=== PATIENT | male | born 1940 | race Caucasian/White ===

== ENCOUNTER 2019-08-28 13:10 | Inpatient (IN) | payer MEDICARE, MEDICAID ==
[~2019-08-28] VITALS: Ht 172.7 cm; Wt 85.3 kg
[2019-08-28 13:20] VITALS: BP 114/77
[2019-08-28] MEDS ORDERED: GABAPENTIN100 MG ORAL (13:25)
[2019-08-28] MEDS ORDERED: COLACE100 MG ORAL (13:25)
[2019-08-28] MEDS ORDERED: NOVOLIN R100 UNIT/1 SUBQ (13:25)
[2019-08-28] MEDS ORDERED: OMEPRAZOLE20 M2 ORAL (13:25)
[2019-08-28] MEDS ORDERED: FLOMAX0.4 MG ORAL (13:25)
[2019-08-28 14:32] LABS: HEMOGLOBIN 14.4 G/DL (14.2-18.0); MEAN CORPUSCULAR VOLUME 87 FL (80-99); PLATELET COUNT 236 K/UL (150-450); RED BLOOD COUNT 4.74 M/UL (4.70-6.10); RED CELL DISTRIBUTION WIDTH 11.4 % (11.6-14.8); WHITE BLOOD COUNT 6.8 K/UL (4.8-10.8)
[2019-08-28 14:44] LABS: ANION GAP 6 mmol/L (5-15); BLOOD UREA NITROGEN 10 mg/dL (7-18); CALCIUM 8.7 MG/DL (8.5-10.1); CARBON DIOXIDE 30 MMOL/L (21-32); CHLORIDE 106 MMOL/L (98-107); CREATININE 0.8 MG/DL (0.55-1.30); SODIUM 142 MMOL/L (136-145)
--- NOTE | 2019-08-28 14:45 | Emergency Room Report ---
History of Present Illness General Chief Complaint: General Complaint Source: EMS, PMD Present Illness HPI Patient presents with reports of continued deterioration in health Lack of oral intake continued confusion and discomfort Patient himself has significant dementia and history is incomplete from the patient however the patient's primary physician did contact us and provided significant input There was no reports of diarrhea or vomiting No reports of any fevers or focal weakness Allergies: Coded Allergies: No Known Allergies (Unverified , 08/28/19) COVID-19 Screening Contact w/high risk pt: No Recent Travel to affected area: No Experienced COVID-19 symptoms?: No COVID-19 Testing performed ASSISTANT TO THE DEAN: No Patient History Limited by: medical condition Past Medical History: see triage record Reviewed Nursing Documentation: PMH: Agreed; PSxH: Agreed Nursing Documentation-PMH Past Medical History: No History, Except For Hx Diabetes: Yes History Of Psychiatric Problem: Yes Review of Systems All Other Systems: limited - Other than the ones mentioned in the history of present illness all others are reviewed however they do stay limited due to the patient's mental status Physical Exam Vital Signs Date Time Temp Pulse Resp B/P (MAP) Pulse Ox O2 Delivery O2 Flow Rate FiO2 08/28/19 13:12 97.3 85 18 114/77 (89) 96 Room Air Sp02 EP Interpretation: reviewed, normal General Appearance: other - Chronically debilitated Head: normocephalic, atraumatic Eyes: bilateral eye PERRL ENT: dry mucus membranes Neck: full range of motion, no meningismus Respiratory: no retraction, no accessory muscle use, crackles - Both lower lobes Cardiovascular #1: regular rate, rhythm Gastrointestinal: non tender, soft Musculoskeletal: other - Patient does not follow commands appears chronically debilitated Neurologic: responsive - To physical and verbal stimuli Skin: no rash Lymphatic: no adenopathy Medical Decision Making Diagnostic Impression: Primary Impression: Dehydration Additional Impression: Weakness ER Course Given the patient's history and presentation multiple differentials and consideration Including but not limited to sepsis dehydration,, neurological/neurosurgical process Patient had extensive work-up including CT imaging CT head does not show any acute process Blood work is at baseline levels urine sample shows questionable infection however small leukocytes this will be deferred to inpatient care Patient further hydrated admitted for further inpatient evaluation Labs Test 08/28/19 14:00 08/28/19 14:40 08/29/19 05:50 08/30/19 06:40 White Blood Count 6.8 K/UL (4.8-10.8) 5.1 K/UL (4.8-10.8) 5.6 K/UL (4.8-10.8) Red Blood Count 4.74 M/UL (4.70-6.10) 4.62 M/UL (4.70-6.10) 4.23 M/UL (4.70-6.10) Hemoglobin 14.4 G/DL (14.2-18.0) 13.9 G/DL (14.2-18.0) 12.9 G/DL (14.2-18.0) Hematocrit 41.0 % (42.0-52.0) 40.0 % (42.0-52.0) 36.9 % (42.0-52.0) Mean Corpuscular Volume 87 FL (80-99) 87 FL (80-99) 87 FL (80-99) Mean Corpuscular Hemoglobin 30.5 PG (27.0-31.0) 30.0 PG (27.0-31.0) 30.4 PG (27.0-31.0) Mean Corpuscular Hemoglobin Concent 35.2 G/DL (32.0-36.0) 34.6 G/DL (32.0-36.0) 34.8 G/DL (32.0-36.0) Red Cell Distribution Width 11.4 % (11.6-14.8) 11.4 % (11.6-14.8) 12.1 % (11.6-14.8) Platelet Count 236 K/UL (150-450) 216 K/UL (150-450) 214 K/UL (150-450) Mean Platelet Volume 7.3 FL (6.5-10.1) 6.3 FL (6.5-10.1) 6.7 FL (6.5-10.1) Neutrophils (%) (Auto) % (45.0-75.0) 75.6 % (45.0-75.0) 72.3 % (45.0-75.0) Lymphocytes (%) (Auto) % (20.0-45.0) 14.9 % (20.0-45.0) 15.7 % (20.0-45.0) Monocytes (%) (Auto) % (1.0-10.0) 5.7 % (1.0-10.0) 7.2 % (1.0-10.0) Eosinophils (%) (Auto) % (0.0-3.0) 3.1 % (0.0-3.0) 4.2 % (0.0-3.0) Basophils (%) (Auto) % (0.0-2.0) 0.6 % (0.0-2.0) 0.5 % (0.0-2.0) Differential Total Cells Counted 100 Neutrophils % (Manual) 78 % (45-75) Lymphocytes % (Manual) 18 % (20-45) Monocytes % (Manual) 4 % (1-10) Eosinophils % (Manual) 0 % (0-3) Basophils % (Manual) 0 % (0-2) Band Neutrophils 0 % (0-8) Platelet Estimate Adequate Platelet Morphology Normal Red Blood Cell Morphology Normal Sodium Level 142 MMOL/L (136-145) 140 MMOL/L (136-145) 146 MMOL/L (136-145) Potassium Level 4.0 MMOL/L (3.5-5.1) 3.8 MMOL/L (3.5-5.1) 4.5 MMOL/L (3.5-5.1) Chloride Level 106 MMOL/L (98-107) 106 MMOL/L (98-107) 110 MMOL/L (98-107) Carbon Dioxide Level 30 MMOL/L (21-32) 28 MMOL/L (21-32) 29 MMOL/L (21-32) Anion Gap 6 mmol/L (5-15) 6 mmol/L (5-15) 7 mmol/L (5-15) Blood Urea Nitrogen 10 mg/dL (7-18) 9 mg/dL (7-18) 6 mg/dL (7-18) Creatinine 0.8 MG/DL (0.55-1.30) 0.8 MG/DL (0.55-1.30) 0.8 MG/DL (0.55-1.30) Estimat Glomerular Filtration Rate > 60 mL/min (>60) > 60 mL/min (>60) > 60 mL/min (>60) Glucose Level 127 MG/DL (74-106) 148 MG/DL (74-106) 142 MG/DL (74-106) Lactic Acid Level 1.10 mmol/L (0.4-2.0) Calcium Level 8.7 MG/DL (8.5-10.1) 8.5 MG/DL (8.5-10.1) 8.5 MG/DL (8.5-10.1) Total Bilirubin 0.7 MG/DL (0.2-1.0) 0.6 MG/DL (0.2-1.0) 0.4 MG/DL (0.2-1.0) Aspartate Amino Transf (AST/SGOT) 14 U/L (15-37) 14 U/L (15-37) 15 U/L (15-37) Alanine Aminotransferase (ALT/SGPT) 16 U/L (12-78) 12 U/L (12-78) 10 U/L (12-78) Alkaline Phosphatase 112 U/L (46-116) 105 U/L (46-116) 94 U/L (46-116) Total Creatine Kinase 87 U/L (26-308) Creatine Kinase MB 1.7 NG/ML (0.0-3.6) Creatine Kinase MB Relative Index 1.9 Troponin I 0.000 ng/mL (0.000-0.056) Pro-B-Type Natriuretic Peptide 321 pg/mL (0-125) Total Protein 6.8 G/DL (6.4-8.2) 6.2 G/DL (6.4-8.2) 5.8 G/DL (6.4-8.2) Albumin 2.6 G/DL (3.4-5.0) 2.4 G/DL (3.4-5.0) 2.1 G/DL (3.4-5.0) Globulin 4.2 g/dL 3.8 g/dL 3.7 g/dL Albumin/Globulin Ratio 0.6 (1.0-2.7) 0.6 (1.0-2.7) 0.6 (1.0-2.7) Lipase 101 U/L (73-393) Urine Color Yellow Urine Appearance Clear Urine pH 6 (4.5-8.0) Urine Specific [place] 1.015 (1.005-1.035) Urine Protein 1+ (NEGATIVE) Urine Glucose (UA) Negative (NEGATIVE) Urine Ketones Negative (NEGATIVE) Urine Blood 2+ (NEGATIVE) Urine Nitrite Negative (NEGATIVE) Urine Bilirubin Negative (NEGATIVE) Urine Urobilinogen 4 MG/DL (0.0-1.0) Urine Leukocyte Esterase 1+ (NEGATIVE) Urine RBC 15-20 /HPF (0 - 0) Urine WBC 10-15 /HPF (0 - 0) Urine Squamous Epithelial Cells None /LPF (NONE/OCC) Urine Bacteria Moderate /HPF (NONE) Erythrocyte Sedimentation Rate 33 MM/HR (0-20) Prothrombin Time 12.0 SEC (9.30-11.50) Prothromb Time International Ratio 1.1 (0.9-1.1) Activated Partial Thromboplast Time 33 SEC (23-33) C-Reactive Protein, Quantitative 4.3 mg/dL (0.00-0.90) Thyroid Stimulating Hormone (TSH) 0.991 uiU/mL (0.358-3.740) Labs Test 08/28/19 14:00 White Blood Count 6.8 K/UL (4.8-10.8) Red Blood Count 4.74 M/UL (4.70-6.10) Hemoglobin 14.4 G/DL (14.2-18.0) Hematocrit 41.0 % (42.0-52.0) Mean Corpuscular Volume 87 FL (80-99) Mean Corpuscular Hemoglobin 30.5 PG (27.0-31.0) Mean Corpuscular Hemoglobin Concent 35.2 G/DL (32.0-36.0) Red Cell Distribution Width 11.4 % (11.6-14.8) Platelet Count 236 K/UL (150-450) Mean Platelet Volume 7.3 FL (6.5-10.1) Neutrophils (%) (Auto) % (45.0-75.0) Lymphocytes (%) (Auto) % (20.0-45.0) Monocytes (%) (Auto) % (1.0-10.0) Eosinophils (%) (Auto) % (0.0-3.0) Basophils (%) (Auto) % (0.0-2.0) Rhythm Strip Diag. Results EP Interpretation: yes Rate: 77 Rhythm: NSR, no PVC's, no ectopy Chest X-Ray Diagnostic Results Chest X-Ray Diagnostic Results : Chest X-Ray Ordered: Yes # of Views/Limited/Complete: 1 View Indication: Chest Pain EP Interpretation: Yes Interpretation: no effusion, no pneumothorax, other - Bilateral atelectasis Impression: Other - Bilateral atelectasis Electronically Signed by: Franchesca Medellin DO CT/MRI/US Diagnostic Results CT/MRI/US Diagnostic Results : Impression ct head no acute disease Last Vital Signs Date Time Temp Pulse Resp B/P (MAP) Pulse Ox O2 Delivery O2 Flow Rate FiO2 08/28/19 13:12 97.3 85 18 114/77 (89) 96 Room Air Status: improved Disposition: ADMITTED INPATIENT Condition: Serious Franchesca Medellin DO Aug 28, 2019 14:45
[2019-08-28 14:58] LABS: ALANINE AMINOTRANSFERASE 16 U/L (12-78); ALBUMIN 2.6 G/DL (3.4-5.0); ALBUMIN/GLOBULIN RATIO 0.6 (1.0-2.7); ALKALINE PHOSPHATASE 112 U/L (46-116); ASPARTATE AMINO TRANSFERASE 14 U/L (15-37); BILIRUBIN,TOTAL 0.7 MG/DL (0.2-1.0); CKMB 1.7 NG/ML (0.0-3.6); CREATINE KINASE 87 U/L (26-308)
--- NOTE | 2019-08-28 15:06 | Diagnostic Imaging Report ---
Indications: Altered mental status Technique: Spiral acquisitions obtained through the brain. Angled axial and coronal 5 x 5 mm slices were reconstructed. Total dose length product 1179 mGycm. CTDI vol(s) 53 mGy. Dose reduction achieved using automated exposure control Comparison: None. Findings: There is age-related enlargement of the ventricles and extra-axial CSF spaces. There is periventricular deep white matter low-attenuation, consistent with chronic microvascular ischemic change. No acute intracranial hemorrhage or edema. No mass effect nor midline shift. Visualized orbits and sinuses are unremarkable. The mastoids are clear. The calvarium is intact Impression: Chronic and age-related changes. Negative for acute intracranial bleed or mass effect. The CT scanner at [facility] is accredited by the [employer] and the scans are performed using protocols designed to limit radiation exposure to as low as reasonably achievable to attain images of sufficient resolution adequate for diagnostic evaluation.
[2019-08-28 16:28] LABS: APPEARANCE,URINE CLEAR; BILIRUBIN, URINE NEGATIVE (NEGATIVE); GLUCOSE, URINE (UA) NEGATIVE (NEGATIVE); KETONES,URINE NEGATIVE (NEGATIVE); LEUKOCYTE ESTERASE ,URINE 1+ (NEGATIVE); NITRITE,URINE NEGATIVE (NEGATIVE); PH,URINE 6 (4.5-8.0); PROTEIN,URINE 1+ (NEGATIVE); UROBILINOGEN,URINE 4 MG/DL (0.0-1.0)
--- NOTE | 2019-08-28 16:28 | Diagnostic Imaging Report ---
Indication: Chest pain Technique: One view of the chest Comparison: none Findings: Patient's chin obscures the right lung apex. There is some atelectasis at both lung bases. The heart size is normal. The aorta is tortuous ectatic and calcified. Mild interstitial prominence may be on the basis of senescent changes. No definite infiltrates. Impression: Basilar atelectasis bilaterally Mild interstitial prominence, suspect on the basis of senescent changes. No definite infiltrates
[2019-08-28 16:43] LABS: COLOR,URINE YELLOW
[2019-08-28 17:21] VITALS: BP 120/76
[2019-08-28 19:15] VITALS: BP 128/80
[2019-08-28] MEDS: cefTRIAXone 1 GM in D5W 55 ML IVPB SCH (21:35)
[2019-08-28] MEDS: D5 1/2NS w/KCL 10meq 1,000 ML IV SCH (21:35)
[2019-08-28] MEDS: Heparin 5000 units/ml inj SUBQ SCH (21:36)
[2019-08-29] VITALS: BP 109/62
[2019-08-29 04:00] VITALS: BP 109/52
--- NOTE | 2019-08-29 06:30 | Consultation ---
DATE OF CONSULTATION: 08/28/2019 CARDIOLOGY CONSULTATION CONSULTING PHYSICIAN: Mahamed Feng MD. REQUESTING PHYSICIAN: Wadlo Dinh MD. REASON FOR CONSULTATION: Cardiovascular clearance for G-tube in the setting of elevated natriuretic peptide assay. HISTORY OF PRESENT ILLNESS: This is an 79-year-old male, residing at a skilled facility with dementia. He is being admitted due to failure, indeed for G-tube placement. He has had failure to thrive and had dysphagia. PAST MEDICAL HISTORY: Type 2 diabetes mellitus, diabetic neuropathy, hypertension, hypertensive heart disease, cerebrovascular disease with dementia. ALLERGIES: None. FAMILY HISTORY: Noncontributory. SOCIAL HISTORY: No record of smoking, alcohol, or substance abuse. MEDICATIONS: Reviewed and reconciled. REVIEW OF SYSTEMS: A 10-point review of systems cannot be reliably obtained. PHYSICAL EXAMINATION: VITAL SIGNS: Blood pressure 114/77, heart rate 85, respiratory rate 18, oxygen saturation room air 97%. HEENT: Conjunctivae pink. Oropharynx clear. NECK: Jugular venous pressure normal. LUNGS: Clear. CARDIAC: Regular. Normal S1, S2 with a fourth heart sound. ABDOMEN: Soft. EXTREMITIES: No edema. NEUROLOGIC: Reveals moderate cognitive impairment. No focal deficits. LABORATORY AND DIAGNOSTIC DATA: Sodium 142, potassium 4, bicarb 30, BUN 10, creatinine 0.8. Lactic acid 1.1. Glucose 127. Liver function normal. Natriuretic peptide 321. Troponin 0. Albumin 2.6. White count 6.8, hemoglobin 14. Urinalysis, 10 to 15 white cells, moderate bacteria. Chest x-ray with atelectasis, interstitial prominence. CT of the brain, diffuse white matter disease. EKG, sinus rhythm. Nonspecific ST changes. Minimal voltage for left ventricular hypertrophy. IMPRESSION: 1. Hypertensive heart disease with controlled blood pressure. 2. Elevated natriuretic peptide assay with no clinical signs of acute congestive heart failure. 3. Type 2 diabetes mellitus with controlled glucose. 4. Moderate protein-calorie malnutrition. 5. Prostatic hypertrophy. 6. Urinary tract infection. PLAN: Hydration by IV route. Empiric antimicrobials. Pending urine cultures. Titrate antihypertensive regimen. Insulin coverage by sliding scale. Normal risk for G-tube placement. No additional preoperative interventions required. Mahamed Feng M.D. DR: ERNESTO JOB#: [id number] CC:
[2019-08-29 07:13] LABS: BASOPHILS % (AUTO) 0.6 % (0.0-2.0); EOSINOPHILS % (AUTO) 3.1 % (0.0-3.0); HEMOGLOBIN 13.9 G/DL (14.2-18.0); LYMPHOCYTES % (AUTO) 14.9 % (20.0-45.0); MEAN CORPUSCULAR VOLUME 87 FL (80-99); MONOCYTES % (AUTO) 5.7 % (1.0-10.0); NEUTROPHILS % (AUTO) 75.6 % (45.0-75.0); PLATELET COUNT 216 K/UL (150-450); RED BLOOD COUNT 4.62 M/UL (4.70-6.10); RED CELL DISTRIBUTION WIDTH 11.4 % (11.6-14.8); WHITE BLOOD COUNT 5.1 K/UL (4.8-10.8)
[2019-08-29 07:16] LABS: ANION GAP 6 mmol/L (5-15); BLOOD UREA NITROGEN 9 mg/dL (7-18); CARBON DIOXIDE 28 MMOL/L (21-32); CHLORIDE 106 MMOL/L (98-107); CREATININE 0.8 MG/DL (0.55-1.30); POTASSIUM 3.8 MMOL/L (3.5-5.1); SODIUM 140 MMOL/L (136-145)
[2019-08-29 07:17] LABS: ALANINE AMINOTRANSFERASE 12 U/L (12-78); ALBUMIN 2.4 G/DL (3.4-5.0); ALBUMIN/GLOBULIN RATIO 0.6 (1.0-2.7); ALKALINE PHOSPHATASE 105 U/L (46-116); ASPARTATE AMINO TRANSFERASE 14 U/L (15-37); BILIRUBIN,TOTAL 0.6 MG/DL (0.2-1.0); CALCIUM 8.5 MG/DL (8.5-10.1)
[2019-08-29 08:00] VITALS: BP 124/62
[2019-08-29] MEDS: Heparin 5000 units/ml inj SUBQ SCH ×2 (09:47→20:33)
[2019-08-29] MEDS: Tamsulosin 0.4mg cap ORAL SCH (09:50)
[2019-08-29] MEDS: Pantoprazole Inj IVP SCH (09:50)
[2019-08-29] MEDS: Docusate 100mg cap ORAL SCH (09:50)
[2019-08-29 12:00] VITALS: BP 128/64
--- NOTE | 2019-08-29 14:07 | Consultation ---
History of Present Illness General Date patient seen: Aug 29, 2019 Chief Complaint: General Complaint Present Illness HPI 79M group home patient g tube dependant with g tube complication. admitted for care. FTT. malnutrition, decubitus, labs abnormal. surgery called to evaluate Allergies: Coded Allergies: No Known Allergies (Unverified , 08/28/19) Medication History Scheduled Docusate Sodium* (Colace*), 100 MG ORAL DAILY, (Reported) Gabapentin* (Gabapentin*), 100 MG ORAL THREE TIMES A DAY, (Reported) Insulin Regular, Human* (Novolin R*), 0 SUBQ .SLIDING SCALE, (Reported) Omeprazole (Omeprazole), 20 MG ORAL DAILY, (Reported) Tamsulosin HCl (Flomax), 0.4 MG ORAL DAILY, (Reported) Patient History Limited by: medical condition History Provided By: Medical Record, PMD Healthcare decision maker N Resuscitation status Advanced Directive on File Past Medical/Surgical History Past Medical/Surgical History: (1) Failure to thrive in adult (2) Malnutrition (3) Decubitus skin ulcer (4) Encounter for gastrojejunal tube placement Review of Systems All Other Systems: negative except mentioned in HPI ROS Narrative unalbe to obtain from patient Physical Exam General Appearance: no apparent distress Lines, tubes and drains: peripheral HEENT: mucous membranes moist Neck: normal inspection Respiratory/Chest: no respiratory distress, no accessory muscle use, decreased breath sounds Cardiovascular/Chest: regular rhythm Abdomen: soft, no organomegaly, feeding tube, other Genitourinary/Rectal: normal rectal exam Extremities: normal inspection Skin Exam: warm/dry Neurologic: alert Last 24 Hour Vital Signs Date Time Temp Pulse Resp B/P (MAP) Pulse Ox O2 Delivery O2 Flow Rate FiO2 08/29/19 12:00 98.0 54 18 128/64 (85) 97 08/29/19 09:00 Room Air 08/29/19 08:00 98.0 50 17 124/62 (82) 96 08/29/19 04:00 97.9 50 18 109/52 (71) 94 08/29/19 00:00 98.1 66 20 109/62 (78) 93 08/28/19 21:30 Room Air 08/28/19 20:21 98.0 79 18 130/73 97 Room Air 08/28/19 19:15 98.0 82 16 128/80 97 Room Air 08/28/19 17:21 98.1 89 18 120/76 96 Room Air Intake and Output 08/28/19 08/29/19 19:00 07:00 Intake Total 1000 ml Output Total 50 ml Balance 1000 ml -50 ml Intake IV Total 1000 ml Output Urine Total 50 ml # Voids 2 1 # Bowel Movements 1 Laboratory Tests Test 08/28/19 14:40 08/29/19 05:50 Urine Color Yellow Urine Appearance Clear Urine pH 6 (4.5-8.0) Urine Specific [place] 1.015 (1.005-1.035) Urine Protein 1+ (NEGATIVE) H Urine Glucose (UA) Negative (NEGATIVE) Urine Ketones Negative (NEGATIVE) Urine Blood 2+ (NEGATIVE) H Urine Nitrite Negative (NEGATIVE) Urine Bilirubin Negative (NEGATIVE) Urine Urobilinogen 4 MG/DL (0.0-1.0) H Urine Leukocyte Esterase 1+ (NEGATIVE) H Urine RBC 15-20 /HPF (0 - 0) H Urine WBC 10-15 /HPF (0 - 0) H Urine Squamous Epithelial Cells None /LPF (NONE/OCC) Urine Bacteria Moderate /HPF (NONE) H White Blood Count 5.1 K/UL (4.8-10.8) Red Blood Count 4.62 M/UL (4.70-6.10) L Hemoglobin 13.9 G/DL (14.2-18.0) L Hematocrit 40.0 % (42.0-52.0) L Mean Corpuscular Volume 87 FL (80-99) Mean Corpuscular Hemoglobin 30.0 PG (27.0-31.0) Mean Corpuscular Hemoglobin Concent 34.6 G/DL (32.0-36.0) Red Cell Distribution Width 11.4 % (11.6-14.8) L Platelet Count 216 K/UL (150-450) Mean Platelet Volume 6.3 FL (6.5-10.1) L Neutrophils (%) (Auto) 75.6 % (45.0-75.0) H Lymphocytes (%) (Auto) 14.9 % (20.0-45.0) L Monocytes (%) (Auto) 5.7 % (1.0-10.0) Eosinophils (%) (Auto) 3.1 % (0.0-3.0) H Basophils (%) (Auto) 0.6 % (0.0-2.0) Sodium Level 140 MMOL/L (136-145) Potassium Level 3.8 MMOL/L (3.5-5.1) Chloride Level 106 MMOL/L (98-107) Carbon Dioxide Level 28 MMOL/L (21-32) Anion Gap 6 mmol/L (5-15) Blood Urea Nitrogen 9 mg/dL (7-18) Creatinine 0.8 MG/DL (0.55-1.30) Estimat Glomerular Filtration Rate > 60 mL/min (>60) Glucose Level 148 MG/DL (74-106) H Calcium Level 8.5 MG/DL (8.5-10.1) Total Bilirubin 0.6 MG/DL (0.2-1.0) Aspartate Amino Transf (AST/SGOT) 14 U/L (15-37) L Alanine Aminotransferase (ALT/SGPT) 12 U/L (12-78) Alkaline Phosphatase 105 U/L (46-116) Total Protein 6.2 G/DL (6.4-8.2) L Albumin 2.4 G/DL (3.4-5.0) L Globulin 3.8 g/dL Albumin/Globulin Ratio 0.6 (1.0-2.7) L Microbiology Date/Time Source Procedure Growth Status 08/28/19 14:40 Urine,Clean Catch Urine Culture - Preliminary NO GROWTH Resulted 08/28/19 15:50 Rectum Received Height (Feet): 5 Height (Inches): 8.00 Weight (Pounds): 149 Medications Current Medications Medications (Trade) Dose Ordered Sig/Margarita Route PRN Reason Start Time Stop Time Status Last Admin Dose Admin Ceftriaxone Sodium 1 gm/ Dextrose 55 ml @ 110 mls/hr Q24H IVPB 08/28/19 22:00 09/04/19 21:59 08/28/19 21:35 Dextrose/ Electrolytes 1,000 ml @ 50 mls/hr Q20H IV 08/28/19 22:00 09/27/19 21:59 08/28/19 21:35 Docusate Sodium (Colace) 100 mg DAILY ORAL 08/29/19 09:00 09/28/19 08:59 08/29/19 09:50 Gabapentin (Neurontin) 100 mg THREE TIMES A DAY ORAL 08/29/19 09:00 09/28/19 08:59 08/29/19 13:32 Heparin Sodium (Porcine) (Heparin 5000 units/ml) 5,000 units EVERY 12 HOURS SUBQ 08/28/19 21:00 10/12/19 20:59 08/29/19 09:47 Pantoprazole (Protonix) 40 mg DAILY IVP 08/29/19 09:00 09/28/19 08:59 08/29/19 09:50 Tamsulosin HCl (Flomax) 0.4 mg DAILY ORAL 08/29/19 09:00 09/28/19 08:59 08/29/19 09:50 Assessment/Plan Problem List: (1) Decubitus skin ulcer Assessment & Plan: Pt presented on admission with multiple Pressure injuries. DTPI Buttocks which encompasses Sacrum, R and L Buttocks with multiple Unstageable wounds within base of Pressure injury. Full thickness wound at sacrococcygeal area.Biofilm at base of wound. Bone is palpable. Inferior,but in close proximity to L buttocks is wound with 100% slough. At upper R sacral area is Unstageable Pressure injury with scattered slough and small necrotic area. Wound at lower R gluteus has 100% slough. Surrounding Base of wound is mixed areas of purple and maroon discoloration. Edges adherent to base of wound. Unstageable Pressure injury medial/lateral R foot. Dry eschar noted . Edges are adherent. No erythema or fluctuance periwound. Stable dry eschar noted to Distal /lateral R foot. No erythema noted periwound. Dark discoloration medial/lateral L foot. Tx.Plan:Cleanse wound Buttocks with Saline. Apply TheraHoney. Apply Moisture Barrier Paste periwound. Cover with Optifoam drsgs. Change Daily and prn. Apply Cavilon Skin Barrier to R and L trochanter. Cover each site with Optifoam drsg. Change every 7 days and prn. Apply Cavilon Skin Barrier to R and L Malleoli,lateral R and L foot, and both heels. Cover each site with Optifoam drsgs. Change every 7 days and prn. Reposition at least every 2hours or as tolerated. Off-load Heels with pillow. APM/ROSE MARY Mattress Overlay. ICD Codes: L89.90 - Pressure ulcer of unspecified site, unspecified stage SNOMED: 040558694 (2) Malnutrition Assessment & Plan: diet eval g tube per GI will follow with recs ICD Codes: E46 - Unspecified protein-calorie malnutrition SNOMED: 79126492 (3) Failure to thrive in adult ICD Codes: R62.7 - Adult failure to thrive SNOMED: 117642029 (4) Encounter for gastrojejunal tube placement ICD Codes: Z78.9 - Other specified health status SNOMED: 474254929 Gordo Villalta Aug 29, 2019 14:07
[2019-08-29 16:00] VITALS: BP 141/71
[2019-08-29] MEDS: D5 1/2NS w/KCL 10meq 1,000 ML IV SCH (17:39)
--- NOTE | 2019-08-29 18:30 | History and Physical Report ---
DATE OF ADMISSION: 08/28/2019 CHIEF COMPLAINT: Dysphagia and altered mental status. HISTORY OF PRESENT ILLNESS: The patient is an 79-year-old male. He has history of dementia, Parkinson disease, hypertension, diabetes. He was transferred from a alf facility with complaints of failure to thrive and worsening p.o. intake. The patient is DNR. Despite changes in his diet as well as appetite stimulants, his p.o. intake has been diminishing. He has been losing weight. The patient's initially believed that he did not want any type of enteral feeding or G-tubes, but after discussion with the patient's other family members, she has elected to proceed with possible G-tube if deemed necessary. The patient is a poor historian. He is unable to provide any history. PAST MEDICAL HISTORY: As above. PAST SURGICAL HISTORY: None. CURRENT MEDICATIONS: Reconciled and reviewed. ALLERGIES: None. FAMILY HISTORY: None. SOCIAL HISTORY: Negative for tobacco, ethanol, or drugs. REVIEW OF SYSTEMS: Unobtainable as the patient is nonverbal. PHYSICAL EXAMINATION: VITAL SIGNS: Temperature 98, pulse 50, respirations 18, and blood pressure 109/52. GENERAL: The patient is well developed, in no apparent distress. HEART: Regular rate and rhythm. LUNGS: Clear. ABDOMEN: Soft, nontender, nondistended. EXTREMITIES: No clubbing, cyanosis, or edema. NEUROLOGIC: The patient is stiff and poorly responsive. LABORATORY DATA: Sodium 142, potassium was 4, BUN of 10, creatinine was 0.8. White count 6, hemoglobin 14, hematocrit 41, platelet count of 236,000. ASSESSMENT: This is an elderly male with a history of dementia and Parkinson disease, admitted with complaints of failure to thrive. PLAN: Plan of care has been discussed with the patient's and she would like to proceed with G-tube placement. GI will be consulted. Cardiology clearance will also be obtained. We will monitor the patient's labs. He will be hydrated. Waldo Dinh M.D. DR: Rhianna JOB#: [id number] CC:
[2019-08-29 20:00] VITALS: BP 129/72
[2019-08-29] MEDS: cefTRIAXone 1 GM in D5W 55 ML IVPB SCH (21:43)
[2019-08-30] VITALS (7 sets, daily range): BP systolic 94–131; BP diastolic 49–80
--- NOTE | 2019-08-30 01:15 | Progress Note ---
DATE: 08/29/2019 CARDIOLOGY PROGRESS NOTE SUBJECTIVE: The patient's intake is poor. Skin breakdown is assessed by surgeon and notes reviewed. Plans for enteral nutrition noted. OBJECTIVE: VITAL SIGNS: Blood pressure 141/71, heart rate 59, respiratory rate 18. LUNGS: Clear. CARDIAC: Regular. Low S1, S2. ABDOMEN: Soft. EXTREMITIES: No edema. NEUROLOGICAL: Moderate cognitive impairment noted. IMPRESSION: 1. Failure to thrive. 2. Severe protein-calorie malnutrition. 3. Asymptomatic sinus bradycardia. 4. Parkinson's dementia. 5. Hypertensive heart disease. 6. Type 2 diabetes mellitus. 7. Chronic diastolic congestive heart failure. PLAN: 1. Hydration. 2. Check thyroid panel. 3. Review repeat electrocardiogram. 4. We will reassess endoscopic risk over the next 24 hours. Mahamed Feng M.D. DR: Serge JOB#: [id number] CC:
[2019-08-30 07:25] LABS: BASOPHILS % (AUTO) 0.5 % (0.0-2.0); EOSINOPHILS % (AUTO) 4.2 % (0.0-3.0); HEMATOCRIT 36.9 % (42.0-52.0); HEMOGLOBIN 12.9 G/DL (14.2-18.0); LYMPHOCYTES % (AUTO) 15.7 % (20.0-45.0); MEAN CORPUSCULAR VOLUME 87 FL (80-99); MONOCYTES % (AUTO) 7.2 % (1.0-10.0); NEUTROPHILS % (AUTO) 72.3 % (45.0-75.0); PLATELET COUNT 214 K/UL (150-450); RED BLOOD COUNT 4.23 M/UL (4.70-6.10); RED CELL DISTRIBUTION WIDTH 12.1 % (11.6-14.8); WHITE BLOOD COUNT 5.6 K/UL (4.8-10.8)
[2019-08-30 07:53] LABS: ALANINE AMINOTRANSFERASE 10 U/L (12-78); ALBUMIN 2.1 G/DL (3.4-5.0); ALBUMIN/GLOBULIN RATIO 0.6 (1.0-2.7); ALKALINE PHOSPHATASE 94 U/L (46-116); ANION GAP 7 mmol/L (5-15); ASPARTATE AMINO TRANSFERASE 15 U/L (15-37); BILIRUBIN,TOTAL 0.4 MG/DL (0.2-1.0); BLOOD UREA NITROGEN 6 mg/dL (7-18); CALCIUM 8.5 MG/DL (8.5-10.1); CARBON DIOXIDE 29 MMOL/L (21-32); CHLORIDE 110 MMOL/L (98-107); CREATININE 0.8 MG/DL (0.55-1.30); POTASSIUM 4.5 MMOL/L (3.5-5.1); SODIUM 146 MMOL/L (136-145)
[2019-08-30 08:00] LABS: INR 1.1 (0.9-1.1)
[2019-08-30] MEDS: Heparin 5000 units/ml inj SUBQ SCH ×2 (08:13→21:14)
[2019-08-30] MEDS: Docusate 100mg cap ORAL SCH (08:15)
[2019-08-30] MEDS: Pantoprazole Inj IVP SCH (08:15)
[2019-08-30] MEDS: Tamsulosin 0.4mg cap ORAL SCH (08:15)
--- NOTE | 2019-08-30 08:15 | General Progress Note ---
Assessment/Plan Problem List: (1) UTI (urinary tract infection) ICD Codes: N39.0 - Urinary tract infection, site not specified SNOMED: 89469141 (2) Toxic metabolic encephalopathy ICD Codes: G92 - Toxic encephalopathy SNOMED: 818054292 (3) Failure to thrive in adult ICD Codes: R62.7 - Adult failure to thrive SNOMED: 469990339 (4) Malnutrition ICD Codes: E46 - Unspecified protein-calorie malnutrition SNOMED: 09041258 (5) Decubitus skin ulcer ICD Codes: L89.90 - Pressure ulcer of unspecified site, unspecified stage SNOMED: 788580094 Status: stable, progressing Assessment/Plan: cont current rx iv abx follow up cultures ivf. monitor Na level swallow eval pending likely will need GT d/w who agrees if needed Subjective ROS Limited/Unobtainable: Yes Constitutional: Reports: malaise, weakness HEENT: Reports: no symptoms Cardiovascular: Reports: no symptoms Respiratory: Reports: no symptoms Gastrointestinal/Abdominal: Reports: difficulty swallowing Genitourinary: Reports: no symptoms Neurologic/Psychiatric: Reports: pre-existing deficit Endocrine: Reports: no symptoms Hematologic/Lymphatic: Reports: no symptoms Allergies: Coded Allergies: No Known Allergies (Unverified , 08/28/19) All Systems: reviewed and negative except above Subjective more alert. on ivf. confused at baseline. no cp/sob. no fever or chills. on abx for uti. cultures neg so far Objective Last 24 Hour Vital Signs Date Time Temp Pulse Resp B/P (MAP) Pulse Ox O2 Delivery O2 Flow Rate FiO2 08/30/19 04:00 97.9 53 18 117/68 (84) 95 08/30/19 00:44 53 19 109/59 (76) 95 08/30/19 00:00 97.8 52 18 94/49 (64) 94 08/29/19 21:00 Room Air 08/29/19 20:00 96.9 67 19 129/72 (91) 97 08/29/19 16:00 97.7 59 18 141/71 (94) 97 08/29/19 12:00 98.0 54 18 128/64 (85) 97 08/29/19 09:00 Room Air Intake and Output 08/29/19 08/30/19 19:00 07:00 Intake Total 1453 ml 555 ml Output Total 600 ml 400 ml Balance 853 ml 155 ml Intake Oral 400 ml 0 ml IV Total 1053 ml 555 ml Output Urine Total 600 ml 400 ml # Voids 2 Laboratory Tests 08/30/19 06:40: White Blood Count 5.6, Red Blood Count 4.23L, Hemoglobin 12.9L, Hematocrit 36.9L , Mean Corpuscular Volume 87, Mean Corpuscular Hemoglobin 30.4, Mean Corpuscular Hemoglobin Concent 34.8, Red Cell Distribution Width 12.1, Platelet Count 214, Mean Platelet Volume 6.7, Neutrophils (%) (Auto) 72.3, Lymphocytes (% ) (Auto) 15.7L, Monocytes (%) (Auto) 7.2, Eosinophils (%) (Auto) 4.2H, Basophils (%) (Auto) 0.5, Erythrocyte Sedimentation Rate [Pending], Prothrombin Time 12.0H, Prothromb Time International Ratio 1.1, Activated Partial Thromboplast Time 33, Sodium Level 146H, Potassium Level 4.5, Chloride Level 110H, Carbon Dioxide Level 29, Anion Gap 7, Blood Urea Nitrogen 6L, Creatinine 0.8, Estimat Glomerular Filtration Rate > 60, Glucose Level 142H, Calcium Level 8.5, Total Bilirubin 0.4, Aspartate Amino Transf (AST/SGOT) 15, Alanine Aminotransferase (ALT/SGPT) 10L, Alkaline Phosphatase 94, C-Reactive Protein, Quantitative 4.3H, Total Protein 5.8L, Albumin 2.1L, Globulin 3.7, Albumin/ Globulin Ratio 0.6L, Thyroid Stimulating Hormone (TSH) 0.991 General Appearance: WD/WN, alert, confused EENT: PERRL/EOMI, normal ENT inspection Neck: non-tender, normal alignment, supple Cardiovascular: normal peripheral pulses, normal rate, regular rhythm Respiratory/Chest: chest wall non-tender, lungs clear, normal breath sounds, no respiratory distress, no accessory muscle use Abdomen: normal bowel sounds, non tender, soft, no organomegaly, no mass Extremities: non-tender, normal inspection Edema: no edema noted Arm (L), no edema noted Arm (R) Neurologic: alert, responsive, disoriented Skin: normal pigmentation Lymphatic: normal anterior cervical (L), normal anterior cervical (R) Waldo Dinh MD Aug 30, 2019 08:15
[2019-08-30] MEDS: D5 1/2NS w/KCL 10meq 1,000 ML IV SCH ×2 (13:17→23:47)
--- NOTE | 2019-08-30 16:30 | General Progress Note ---
Assessment/Plan Status: stable, progressing Assessment/Plan: GI Consultation Assessment - Parkinson's - FTT - Anorexia - malnutrition / low albumin - decubitus ulcers - OBS Recommendations - careful po intake - IVF - wound care - Can place PEG once cleared by Medicine and Cardiology Subjective Allergies: Coded Allergies: No Known Allergies (Unverified , 08/28/19) Objective Last 24 Hour Vital Signs Date Time Temp Pulse Resp B/P (MAP) Pulse Ox O2 Delivery O2 Flow Rate FiO2 08/30/19 12:00 98.8 53 18 127/79 (95) 96 08/30/19 09:00 Room Air 08/30/19 08:00 98.0 58 18 122/74 (90) 97 08/30/19 04:00 97.9 53 18 117/68 (84) 95 08/30/19 00:44 53 19 109/59 (76) 95 08/30/19 00:00 97.8 52 18 94/49 (64) 94 08/29/19 21:00 Room Air 08/29/19 20:00 96.9 67 19 129/72 (91) 97 Intake and Output 08/29/19 08/30/19 19:00 07:00 Intake Total 1453 ml 555 ml Output Total 600 ml 400 ml Balance 853 ml 155 ml Intake Oral 400 ml 0 ml IV Total 1053 ml 555 ml Output Urine Total 600 ml 400 ml # Voids 2 Laboratory Tests 08/30/19 06:40: White Blood Count 5.6, Red Blood Count 4.23L, Hemoglobin 12.9L, Hematocrit 36.9L , Mean Corpuscular Volume 87, Mean Corpuscular Hemoglobin 30.4, Mean Corpuscular Hemoglobin Concent 34.8, Red Cell Distribution Width 12.1, Platelet Count 214, Mean Platelet Volume 6.7, Neutrophils (%) (Auto) 72.3, Lymphocytes (% ) (Auto) 15.7L, Monocytes (%) (Auto) 7.2, Eosinophils (%) (Auto) 4.2H, Basophils (%) (Auto) 0.5, Erythrocyte Sedimentation Rate 33H, Prothrombin Time 12.0H, Prothromb Time International Ratio 1.1, Activated Partial Thromboplast Time 33, Sodium Level 146H, Potassium Level 4.5, Chloride Level 110H, Carbon Dioxide Level 29, Anion Gap 7, Blood Urea Nitrogen 6L, Creatinine 0.8, Estimat Glomerular Filtration Rate > 60, Glucose Level 142H, Calcium Level 8.5, Total Bilirubin 0.4, Aspartate Amino Transf (AST/SGOT) 15, Alanine Aminotransferase ( ALT/SGPT) 10L, Alkaline Phosphatase 94, C-Reactive Protein, Quantitative 4.3H, Total Protein 5.8L, Albumin 2.1L, Globulin 3.7, Albumin/Globulin Ratio 0.6L, Thyroid Stimulating Hormone (TSH) 0.991 Height (Feet): 5 Height (Inches): 8.00 Weight (Pounds): 149 Kenji Goodman MD Aug 30, 2019 16:30
--- NOTE | 2019-08-30 17:50 | Surgery Progress Note ---
Surgery Progress Note Subjective Additional Comments labs noted exam stable comfortable no n/v/f/c Objective Last 24 Hour Vital Signs Date Time Temp Pulse Resp B/P (MAP) Pulse Ox O2 Delivery O2 Flow Rate FiO2 08/30/19 12:00 98.8 53 18 127/79 (95) 96 08/30/19 09:00 Room Air 08/30/19 08:00 98.0 58 18 122/74 (90) 97 08/30/19 04:00 97.9 53 18 117/68 (84) 95 08/30/19 00:44 53 19 109/59 (76) 95 08/30/19 00:00 97.8 52 18 94/49 (64) 94 08/29/19 21:00 Room Air 08/29/19 20:00 96.9 67 19 129/72 (91) 97 I&O Intake and Output 08/29/19 08/30/19 19:00 07:00 Intake Total 1453 ml 555 ml Output Total 600 ml 400 ml Balance 853 ml 155 ml Intake Oral 400 ml 0 ml IV Total 1053 ml 555 ml Output Urine Total 600 ml 400 ml # Voids 2 Dressing: other Wound: other Drains: other Cardiovascular: RSR Respiratory: decreased breath sounds Abdomen: soft, non-tender, present bowel sounds Extremities: no edema, no tenderness Laboratory Tests Test 08/30/19 06:40 White Blood Count 5.6 K/UL (4.8-10.8) Red Blood Count 4.23 M/UL (4.70-6.10) L Hemoglobin 12.9 G/DL (14.2-18.0) L Hematocrit 36.9 % (42.0-52.0) L Mean Corpuscular Volume 87 FL (80-99) Mean Corpuscular Hemoglobin 30.4 PG (27.0-31.0) Mean Corpuscular Hemoglobin Concent 34.8 G/DL (32.0-36.0) Red Cell Distribution Width 12.1 % (11.6-14.8) Platelet Count 214 K/UL (150-450) Mean Platelet Volume 6.7 FL (6.5-10.1) Neutrophils (%) (Auto) 72.3 % (45.0-75.0) Lymphocytes (%) (Auto) 15.7 % (20.0-45.0) L Monocytes (%) (Auto) 7.2 % (1.0-10.0) Eosinophils (%) (Auto) 4.2 % (0.0-3.0) H Basophils (%) (Auto) 0.5 % (0.0-2.0) Erythrocyte Sedimentation Rate 33 MM/HR (0-20) H Prothrombin Time 12.0 SEC (9.30-11.50) H Prothromb Time International Ratio 1.1 (0.9-1.1) Activated Partial Thromboplast Time 33 SEC (23-33) Sodium Level 146 MMOL/L (136-145) H Potassium Level 4.5 MMOL/L (3.5-5.1) Chloride Level 110 MMOL/L (98-107) H Carbon Dioxide Level 29 MMOL/L (21-32) Anion Gap 7 mmol/L (5-15) Blood Urea Nitrogen 6 mg/dL (7-18) L Creatinine 0.8 MG/DL (0.55-1.30) Estimat Glomerular Filtration Rate > 60 mL/min (>60) Glucose Level 142 MG/DL (74-106) H Calcium Level 8.5 MG/DL (8.5-10.1) Total Bilirubin 0.4 MG/DL (0.2-1.0) Aspartate Amino Transf (AST/SGOT) 15 U/L (15-37) Alanine Aminotransferase (ALT/SGPT) 10 U/L (12-78) L Alkaline Phosphatase 94 U/L (46-116) C-Reactive Protein, Quantitative 4.3 mg/dL (0.00-0.90) H Total Protein 5.8 G/DL (6.4-8.2) L Albumin 2.1 G/DL (3.4-5.0) L Globulin 3.7 g/dL Albumin/Globulin Ratio 0.6 (1.0-2.7) L Thyroid Stimulating Hormone (TSH) 0.991 uiU/mL (0.358-3.740) Plan Problems: (1) Decubitus skin ulcer Assessment & Plan: Pt presented on admission with multiple Pressure injuries. DTPI Buttocks which encompasses Sacrum, R and L Buttocks with multiple Unstageable wounds within base of Pressure injury. Full thickness wound at sacrococcygeal area.Biofilm at base of wound. Bone is palpable. Inferior,but in close proximity to L buttocks is wound with 100% slough. At upper R sacral area is Unstageable Pressure injury with scattered slough and small necrotic area. Wound at lower R gluteus has 100% slough. Surrounding Base of wound is mixed areas of purple and maroon discoloration. Edges adherent to base of wound. Unstageable Pressure injury medial/lateral R foot. Dry eschar noted . Edges are adherent. No erythema or fluctuance periwound. Stable dry eschar noted to Distal /lateral R foot. No erythema noted periwound. Dark discoloration medial/lateral L foot. Tx.Plan:Cleanse wound Buttocks with Saline. Apply TheraHoney. Apply Moisture Barrier Paste periwound. Cover with Optifoam drsgs. Change Daily and prn. Apply Cavilon Skin Barrier to R and L trochanter. Cover each site with Optifoam drsg. Change every 7 days and prn. Apply Cavilon Skin Barrier to R and L Malleoli,lateral R and L foot, and both heels. Cover each site with Optifoam drsgs. Change every 7 days and prn. Reposition at least every 2hours or as tolerated. Off-load Heels with pillow. APM/ROSE MARY Mattress Overlay. (2) Malnutrition Assessment & Plan: diet eval g tube per GI will follow with recs (3) Failure to thrive in adult (4) Encounter for gastrojejunal tube placement Gordo Villalta Aug 30, 2019 17:50
[2019-08-30] MEDS: cefTRIAXone 1 GM in D5W 55 ML IVPB SCH (21:14)
--- NOTE | 2019-08-30 23:45 | Progress Note ---
DATE: 08/30/2019 CARDIOLOGY PROGRESS NOTE SUBJECTIVE: The patient is confused at baseline and in no distress. OBJECTIVE: VITAL SIGNS: Blood pressure 117/68, pulse 53, respirations 18, afebrile. LUNGS: Clear. CARDIAC: Regular. ABDOMEN: Soft. EXTREMITIES: No edema. LABORATORY DATA: EKG(08/30/19) sinus bradycardia @ [address] changes. LABORATORY DATA: White count 5.6 and hemoglobin 12.9. TSH is almost 1. Albumin 2.1. Sodium 146, BUN 6, creatinine 0.8, and chloride 110. IMPRESSION: 1. Failure to thrive. 2. Severe protein calorie malnutrition. 3. Dehydration. 4. Hypernatremia. 5. Sinus bradycardia 6. Hypertensive heart disease. 7. Asymptomatic sinus node disease. PLAN: 1. Increase free water replacement. 2. No immediate plan for pacemaker. 3. Increased risk for bradycardia during PEG due to potential for increased vagal tone. As such, recommend atropine availability during procedure. Mahamed Feng M.D. DR: GIULIANO JOB#: [id number] CC: OMAR
[2019-08-31] VITALS (7 sets, daily range): BP systolic 99–135; BP diastolic 40–76
--- NOTE | 2019-08-31 04:00 | Consultation ---
DATE OF CONSULTATION: 08/30/2019 GASTROENTEROLOGY CONSULTATION CONSULTING PHYSICIAN: Kenji Goodman MD. CHIEF COMPLAINT: I was asked to see this patient by Dr. Waldo Dinh for evaluation of nutrition and possible gastrostomy tube placement. HISTORY OF PRESENT ILLNESS: The patient is an unfortunate 79-year-old man with Parkinson disease, debilitation, and some degree of dementia who has had failing course daily with anorexia, malnutrition, and decubitus ulcer formation. He has been brought to the hospital due to these issues. The patient's is involved with his care, a gastrostomy tube as needed for nutritional support and access for enteral medications. The patient does not offer much history. PAST MEDICAL HISTORY: History of Parkinson disease, debilitation, dementia, hypertension, diabetes, and decubitus ulceration. FAMILY HISTORY: Noncontributory. SOCIAL HISTORY: The patient has who looks after his affairs. He is from a correction. REVIEW OF SYSTEMS: Otherwise negative. PHYSICAL EXAMINATION: GENERAL: Debilitated man seen in his room. HEENT: Normocephalic and atraumatic. There is some degree of contractures and temporal wasting. NECK: Supple. CHEST: Clear to auscultation. CARDIOVASCULAR: Revealed regular rate. ABDOMEN: Soft and flat. EXTREMITIES: Revealed contractures and decubitus ulcers. LABORATORY DATA: Noted. ASSESSMENT: This patient presents with Parkinson disease with dementia, debilitation, decubitus ulceration, malnutrition, failure to thrive, and contracture deformities. The patient be checked for oral feeding and nutrition, but he will likely need a gastrostomy tube in a long-term for enteral nutritional support. In the meantime, the COVID data would be checked as well as ST evaluated and also need medical and cardiology clearance for procedure. RECOMMENDATIONS: 1. Continue oral intake as tolerated. 2. Check oral swallow study. 3. Follow laboratory parameters and exam. 4. Check COVID testing. 5. Possible gastrostomy at a later date. Thank you for asking me to participate in care of this patient. Kenji Goodman M.D. DR: Rush JOB#: [id number] CC: OMAR
[2019-08-31] MEDS: Pantoprazole Inj IVP SCH (08:20)
[2019-08-31] MEDS: Tamsulosin 0.4mg cap ORAL SCH (08:20)
[2019-08-31] MEDS: Docusate 100mg cap ORAL SCH (08:20)
[2019-08-31] MEDS: Heparin 5000 units/ml inj SUBQ SCH ×2 (08:39→20:13)
[2019-08-31] MEDS: D5 1/2NS w/KCL 10meq 1,000 ML IV SCH ×2 (09:00→18:36)
--- NOTE | 2019-08-31 09:27 | General Progress Note ---
Assessment/Plan Status: stable, progressing Assessment/Plan: Assessment - Parkinson's - FTT - Anorexia - malnutrition / low albumin - decubitus ulcers - OBS Recommendations - careful po intake - check swallow evaluation - IVF - wound care - PEG once stable Subjective Allergies: Coded Allergies: No Known Allergies (Unverified , 08/28/19) Subjective above noted more awake NAD Objective Last 24 Hour Vital Signs Date Time Temp Pulse Resp B/P (MAP) Pulse Ox O2 Delivery O2 Flow Rate FiO2 08/31/19 04:00 97.8 50 20 120/57 (78) 95 08/31/19 00:00 97.0 70 19 99/40 (59) 95 08/30/19 21:00 Room Air 08/30/19 20:00 97.0 49 20 115/52 (73) 96 08/30/19 16:00 98.6 59 18 131/80 (97) 97 08/30/19 12:00 98.8 53 18 127/79 (95) 96 Intake and Output 08/30/19 08/31/19 19:00 07:00 Intake Total 650 ml Output Total 700 ml 450 ml Balance -50 ml -450 ml IV Total 300 ml Other 350 ml Output Urine Total 700 ml 450 ml # Voids 1 # Bowel Movements 1 Height (Feet): 5 Height (Inches): 8.00 Weight (Pounds): 149 Objective Debilitated WM NCAT supple CTA RRR Abd soft, NT, ND no edema Kenji Goodman MD Aug 31, 2019 09:27
--- NOTE | 2019-08-31 09:58 | General Progress Note ---
Assessment/Plan Problem List: (1) UTI (urinary tract infection) ICD Codes: N39.0 - Urinary tract infection, site not specified SNOMED: 52413046 (2) Toxic metabolic encephalopathy ICD Codes: G92 - Toxic encephalopathy SNOMED: 080595513 (3) Failure to thrive in adult ICD Codes: R62.7 - Adult failure to thrive SNOMED: 352133599 (4) Malnutrition ICD Codes: E46 - Unspecified protein-calorie malnutrition SNOMED: 50856331 (5) Decubitus skin ulcer ICD Codes: L89.90 - Pressure ulcer of unspecified site, unspecified stage SNOMED: 083362993 Status: stable, progressing Assessment/Plan: cont current rx iv abx follow up cultures ivf. monitor Na level swallow eval pending likely will need GT d/w who agrees if needed Subjective ROS Limited/Unobtainable: No Constitutional: Reports: malaise, weakness HEENT: Reports: no symptoms Cardiovascular: Reports: no symptoms Respiratory: Reports: no symptoms Gastrointestinal/Abdominal: Reports: difficulty swallowing Genitourinary: Reports: no symptoms Neurologic/Psychiatric: Reports: anxiety Endocrine: Reports: no symptoms Hematologic/Lymphatic: Reports: no symptoms Allergies: Coded Allergies: No Known Allergies (Unverified , 08/28/19) All Systems: reviewed and negative except above Subjective more alert. on ivf. confused at baseline. no cp/sob. no fever or chills. on abx for uti. cultures neg so far Objective Last 24 Hour Vital Signs Date Time Temp Pulse Resp B/P (MAP) Pulse Ox O2 Delivery O2 Flow Rate FiO2 08/31/19 04:00 97.8 50 20 120/57 (78) 95 08/31/19 00:00 97.0 70 19 99/40 (59) 95 08/30/19 21:00 Room Air 08/30/19 20:00 97.0 49 20 115/52 (73) 96 08/30/19 16:00 98.6 59 18 131/80 (97) 97 08/30/19 12:00 98.8 53 18 127/79 (95) 96 Intake and Output 08/30/19 08/31/19 19:00 07:00 Intake Total 650 ml Output Total 700 ml 450 ml Balance -50 ml -450 ml IV Total 300 ml Other 350 ml Output Urine Total 700 ml 450 ml # Voids 1 # Bowel Movements 1 Height (Feet): 5 Height (Inches): 8.00 Weight (Pounds): 149 Waldo Dinh MD Aug 31, 2019 09:58
--- NOTE | 2019-08-31 10:05 | General Progress Note ---
Assessment/Plan Problem List: (1) UTI (urinary tract infection) ICD Codes: N39.0 - Urinary tract infection, site not specified SNOMED: 05880349 (2) Toxic metabolic encephalopathy ICD Codes: G92 - Toxic encephalopathy SNOMED: 015195937 (3) Failure to thrive in adult ICD Codes: R62.7 - Adult failure to thrive SNOMED: 254287509 (4) Malnutrition ICD Codes: E46 - Unspecified protein-calorie malnutrition SNOMED: 67299396 (5) Decubitus skin ulcer ICD Codes: L89.90 - Pressure ulcer of unspecified site, unspecified stage SNOMED: 696460886 Status: stable, progressing Assessment/Plan: cont current rx iv abx follow up cultures ivf. monitor Na level swallow eval pending likely will need GT d/w who agrees if needed Subjective ROS Limited/Unobtainable: No Constitutional: Reports: malaise, weakness HEENT: Reports: no symptoms Cardiovascular: Reports: no symptoms Respiratory: Reports: cough Gastrointestinal/Abdominal: Reports: no symptoms Genitourinary: Reports: no symptoms Neurologic/Psychiatric: Reports: no symptoms Endocrine: Reports: no symptoms Hematologic/Lymphatic: Reports: anemia Allergies: Coded Allergies: No Known Allergies (Unverified , 08/28/19) All Systems: reviewed and negative except above Subjective more alert. on ivf. confused at baseline. no cp/sob. no fever or chills. on abx for uti. cultures neg so far Objective Last 24 Hour Vital Signs Date Time Temp Pulse Resp B/P (MAP) Pulse Ox O2 Delivery O2 Flow Rate FiO2 08/31/19 04:00 97.8 50 20 120/57 (78) 95 08/31/19 00:00 97.0 70 19 99/40 (59) 95 08/30/19 21:00 Room Air 08/30/19 20:00 97.0 49 20 115/52 (73) 96 08/30/19 16:00 98.6 59 18 131/80 (97) 97 08/30/19 12:00 98.8 53 18 127/79 (95) 96 Intake and Output 08/30/19 08/31/19 19:00 07:00 Intake Total 650 ml Output Total 700 ml 450 ml Balance -50 ml -450 ml IV Total 300 ml Other 350 ml Output Urine Total 700 ml 450 ml # Voids 1 # Bowel Movements 1 Height (Feet): 5 Height (Inches): 8.00 Weight (Pounds): 149 Waldo Dinh MD Aug 31, 2019 10:05
--- NOTE | 2019-08-31 11:48 | Surgery Progress Note ---
Surgery Progress Note Subjective Additional Comments no acute events comfortable stable Objective Last 24 Hour Vital Signs Date Time Temp Pulse Resp B/P (MAP) Pulse Ox O2 Delivery O2 Flow Rate FiO2 08/31/19 09:00 Room Air 08/31/19 08:00 97.3 50 20 135/57 (83) 94 08/31/19 04:00 97.8 50 20 120/57 (78) 95 08/31/19 00:00 97.0 70 19 99/40 (59) 95 08/30/19 21:00 Room Air 08/30/19 20:00 97.0 49 20 115/52 (73) 96 08/30/19 16:00 98.6 59 18 131/80 (97) 97 08/30/19 12:00 98.8 53 18 127/79 (95) 96 I&O Intake and Output 08/30/19 08/31/19 19:00 07:00 Intake Total 650 ml Output Total 700 ml 450 ml Balance -50 ml -450 ml IV Total 300 ml Other 350 ml Output Urine Total 700 ml 450 ml # Voids 1 # Bowel Movements 1 Dressing: other Wound: other Drains: other Cardiovascular: RSR Respiratory: decreased breath sounds Abdomen: soft, present bowel sounds Extremities: no tenderness, no cyanosis Plan Problems: (1) Decubitus skin ulcer Assessment & Plan: Pt presented on admission with multiple Pressure injuries. DTPI Buttocks which encompasses Sacrum, R and L Buttocks with multiple Unstageable wounds within base of Pressure injury. Full thickness wound at sacrococcygeal area.Biofilm at base of wound. Bone is palpable. Inferior,but in close proximity to L buttocks is wound with 100% slough. At upper R sacral area is Unstageable Pressure injury with scattered slough and small necrotic area. Wound at lower R gluteus has 100% slough. Surrounding Base of wound is mixed areas of purple and maroon discoloration. Edges adherent to base of wound. Unstageable Pressure injury medial/lateral R foot. Dry eschar noted . Edges are adherent. No erythema or fluctuance periwound. Stable dry eschar noted to Distal /lateral R foot. No erythema noted periwound. Dark discoloration medial/lateral L foot. Tx.Plan:Cleanse wound Buttocks with Saline. Apply TheraHoney. Apply Moisture Barrier Paste periwound. Cover with Optifoam drsgs. Change Daily and prn. Apply Cavilon Skin Barrier to R and L trochanter. Cover each site with Optifoam drsg. Change every 7 days and prn. Apply Cavilon Skin Barrier to R and L Malleoli,lateral R and L foot, and both heels. Cover each site with Optifoam drsgs. Change every 7 days and prn. Reposition at least every 2hours or as tolerated. Off-load Heels with pillow. APM/ROSE MARY Mattress Overlay. (2) Malnutrition Assessment & Plan: DAILY ESTIMATED NEEDS: Needs based on Wounds, 73.6kg 28-33 kcals/kg 0914-2173 total kcals 1.25-2 g protein/kg 92-147 g total protein 25-30 mL/kg 2676-2559 total fluid mLs NUTRITION DIAGNOSIS: Increased kcal and pro needs r/t weight loss and wound healing as evidenced by 12# wt loss x2 months d/t decreased po intake, 7% wt change, w/ multiple advanced wounds, refer to WC eval. (CURRENT DIET: Cardiac puree, NTL) PO DIET RECOMMENDATIONS---->>>> Liberalized Regular diet for oral grat/ texture per SERVICE LINE COORDINATOR ENTERAL NUTRITION RECOMMENDATIONS IF PART OF POC: For non oral feeds: Glucerna 1.2 @72ml/hr x24 hrs to provide 1728ml, 2074kcal, 104g pro, 1391 ml free H2O - Pt adm w/ eval for PEG placement. - FOR TF'S WITHOUT ORAL GRAT: rec above TF as able, start Glucerna 1.2 @22ml/hr for 6 hrs, advance as tolerated 10ml/hr q4-6 hrs to goal. - Flush per MD/ HOB over 30 degerees - Monitor tolerance and glycemic control. If Glucerna 1.5 is available ([place] wide shortage) would rec at a goal of 60ml/hr x24 hrs for 1440ml, 2160 kcal, 119g pro, 1093ml free H2O. ADDITIONAL RECOMMENDATIONS: 1) Monitor for PEG eval, oral grat, po intake Will adjust TF recs w/ continued po intake/ oral grat 2) With oral diet only, add Glucerna TID w/ meals 3) Wound care: SHIVA BID + Vit C 250mg BID + ZnSo4 220 mg qd x10 days Without TF's-> add MVI w. min qd 4) A1C 6.7 (May 2019), consider niss (3) Failure to thrive in adult (4) Encounter for gastrojejunal tube placement Gordo Villalta Aug 31, 2019 11:48
[2019-08-31] MEDS: Ascorbic Acid 500mg tab ORAL SCH (17:17)
[2019-08-31] MEDS: cefTRIAXone 1 GM in D5W 55 ML IVPB SCH (22:13)
[2019-09-01] VITALS: BP 121/64
--- NOTE | 2019-09-01 00:15 | Progress Note ---
DATE: 08/31/2019 CARDIOLOGY PROGRESS NOTE SUBJECTIVE: The patient has no chest pain. No shortness of breath. Intake is poor. He remains withdrawn. Vitals are stable. Blood pressure episodically low range however at 99/40, heart rate in the 49 to 70 range, respiratory rate 18 to 20. PHYSICAL EXAMINATION: LUNGS: Clear. CARDIAC: Regular. ABDOMEN: Soft. EXTREMITIES: Trace edema. IMPRESSION: 1. Failure to thrive. 2. Asymptomatic sinus bradycardia. 3. Dementia. 4. Dysphagia. 5. Urinary tract infection. 6. Metabolic encephalopathy. 7. Dehydration and hypernatremia correcting. PLAN: 1. Continue hypotonic IV fluids. 2. Await completion of dysphagia workup. 3. Atropine at bedside for EGD view of increased vagal tone likely during such intervention. 4. No indication for pacemaker. Mahamed Feng M.D. DR: Sathya JOB#: [id number] CC:
[2019-09-01 04:00] VITALS: BP 124/54
[2019-09-01] MEDS: D5 1/2NS w/KCL 10meq 1,000 ML IV SCH ×3 (04:22→23:27)
[2019-09-01 07:49] LABS: BASOPHILS % (AUTO) 0.6 % (0.0-2.0); EOSINOPHILS % (AUTO) 2.4 % (0.0-3.0); HEMATOCRIT 34.1 % (42.0-52.0); HEMOGLOBIN 12.2 G/DL (14.2-18.0); LYMPHOCYTES % (AUTO) 13.1 % (20.0-45.0); MEAN CORPUSCULAR VOLUME 86 FL (80-99); MONOCYTES % (AUTO) 7.8 % (1.0-10.0); NEUTROPHILS % (AUTO) 76.1 % (45.0-75.0); PLATELET COUNT 179 K/UL (150-450); RED BLOOD COUNT 3.96 M/UL (4.70-6.10); RED CELL DISTRIBUTION WIDTH 12.1 % (11.6-14.8); WHITE BLOOD COUNT 4.9 K/UL (4.8-10.8)
[2019-09-01 08:00] VITALS: BP 121/50
[2019-09-01 08:04] LABS: ALANINE AMINOTRANSFERASE 14 U/L (12-78); ALBUMIN 1.9 G/DL (3.4-5.0); ALBUMIN/GLOBULIN RATIO 0.6 (1.0-2.7); ALKALINE PHOSPHATASE 90 U/L (46-116); ANION GAP 5 mmol/L (5-15); ASPARTATE AMINO TRANSFERASE 17 U/L (15-37); BILIRUBIN,TOTAL 0.2 MG/DL (0.2-1.0); BLOOD UREA NITROGEN 3 mg/dL (7-18); CALCIUM 7.9 MG/DL (8.5-10.1); CARBON DIOXIDE 26 MMOL/L (21-32); CHLORIDE 106 MMOL/L (98-107); CREATININE 0.8 MG/DL (0.55-1.30); POTASSIUM 3.9 MMOL/L (3.5-5.1); SODIUM 137 MMOL/L (136-145)
[2019-09-01] MEDS: Pantoprazole Inj IVP SCH (08:27)
[2019-09-01] MEDS: Zinc Sulfate 220mg ORAL SCH (08:27)
[2019-09-01] MEDS: Docusate 100mg cap ORAL SCH (08:27)
[2019-09-01] MEDS: Tamsulosin 0.4mg cap ORAL SCH (08:27)
[2019-09-01] MEDS: Ascorbic Acid 500mg tab ORAL SCH ×2 (08:27→17:14)
[2019-09-01] MEDS: Heparin 5000 units/ml inj SUBQ SCH ×2 (08:29→21:05)
[2019-09-01 12:00] VITALS: BP 92/51
[2019-09-01] MEDS ORDERED: Vancomycin 1.25gm/NS Premix IVPB ONE (12:30)
--- NOTE | 2019-09-01 14:30 | Consultation ---
DATE OF CONSULTATION: 09/01/2019 INFECTIOUS DISEASES CONSULTATION CONSULTING PHYSICIAN: David Caraballo MD. REFERRING PHYSICIAN: Waldo Dinh MD. REASON FOR CONSULTATION: Sepsis, bacteremia. HISTORY OF PRESENTING ILLNESS: This is an 79-year-old gentleman with history of diabetes, hypertension, Parkinson's disease, dementia, who came in from a senior care facility with failure to thrive and worsening p.o. intake. He was found to be bacteremic and an Infectious Diseases consultation has been obtained for antibiotics. PAST MEDICAL HISTORY: 1. History of diabetes. 2. Hypertension. 3. Parkinson's disease. 4. Dementia. SOCIAL HISTORY: Unknown. FAMILY HISTORY: Unknown. REVIEW OF SYSTEMS: Unable to obtain currently. MEDICATIONS: As an inpatient, he is on multivitamin, zinc sulfate, ascorbic acid, docusate, gabapentin, Flomax, Protonix, ceftriaxone, subcutaneous heparin. ALLERGIES: No known drug allergies. PHYSICAL EXAMINATION: VITAL SIGNS: Temperature of 97.7, T-max of 98.2, pulse of 49, respiratory rate 19, blood pressure 121/50, O2 saturation of 95% on room air. HEENT: Pupils equally reactive to light and accommodation. Mouth appears clean without thrush. NECK: Supple. No adenopathy. No JVD. CARDIOVASCULAR: Regular rate and rhythm. No murmurs. LUNGS: Clear to auscultation bilaterally. No crackles. No wheezes. ABDOMEN: Soft, nontender. No organomegaly. EXTREMITIES: No cyanosis, no clubbing, no edema. LABORATORY AND DIAGNOSTIC DATA: White count 4.9, hemoglobin 12.2, hematocrit 34.1, MCV 86, platelet count of 179,000. Sodium 137, potassium 3.9, chloride 106, bicarb 26, BUN 3, creatinine 0.8, glucose 188, calcium 7.9. Total bilirubin 0.2. AST 17, ALT 14, alkaline phosphatase 90. Beta natriuretic peptide 824. Total protein 5.2, albumin 1.9. Lipase of 101. UA showing 10 to 15 white cells. Blood culture showing gram-positive cocci. Urine cultures are negative. 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 Nasal swab was negative for MRSA. Chest x-ray is showing no definite infiltrate. CT head showing chronic age-related changes. Negative for bleed or mass effect. ASSESSMENT: This is an 79-year-old gentleman with history of diabetes, hypertension, Parkinson's disease, dementia, who comes in with failure to thrive and worsening p.o. intake and was found to have: 1. Gram-positive bacteremia. 2. Diabetes. 3. Hypertension. 4. Dementia. 5. Parkinson's disease. PLAN: 1. Discontinue ceftriaxone. 2. We will start the patient on IV vancomycin. 3. We will follow up cultures. I would like to thank, Dr. Dinh, for this consultation. David Caraballo M.D. DR: BRIDGET JOB#: [id number] CC: Waldo Dinh MD.
[2019-09-01] MEDS ORDERED: D5 1/2NS w/KCL 10meq 1,000 ML IV SCH (15:12)
--- NOTE | 2019-09-01 15:14 | General Progress Note ---
Assessment/Plan Problem List: (1) UTI (urinary tract infection) ICD Codes: N39.0 - Urinary tract infection, site not specified SNOMED: 69335296 (2) Toxic metabolic encephalopathy ICD Codes: G92 - Toxic encephalopathy SNOMED: 444068072 (3) Failure to thrive in adult ICD Codes: R62.7 - Adult failure to thrive SNOMED: 797566536 (4) Malnutrition ICD Codes: E46 - Unspecified protein-calorie malnutrition SNOMED: 48035087 (5) Decubitus skin ulcer ICD Codes: L89.90 - Pressure ulcer of unspecified site, unspecified stage SNOMED: 841074945 Status: stable, progressing Assessment/Plan: cont current rx iv abx ID appreciated follow up cultures ivf decreased. monitor labs speech rx encourage pos GT when stable await covid d/w who agrees if needed Subjective ROS Limited/Unobtainable: No Constitutional: Reports: malaise, weakness HEENT: Reports: no symptoms Cardiovascular: Reports: no symptoms Respiratory: Reports: cough Gastrointestinal/Abdominal: Reports: difficulty swallowing, poor appetite, poor fluid intake Genitourinary: Reports: no symptoms Neurologic/Psychiatric: Reports: anxiety, emotional problems Endocrine: Reports: no symptoms Hematologic/Lymphatic: Reports: no symptoms Allergies: Coded Allergies: No Known Allergies (Unverified , 08/28/19) All Systems: reviewed and negative except above Subjective more alert. on ivf. confused at baseline. no cp/sob. no fever or chills. on abx for uti. +blood cultures noted. Objective Last 24 Hour Vital Signs Date Time Temp Pulse Resp B/P (MAP) Pulse Ox O2 Delivery O2 Flow Rate FiO2 09/01/19 12:00 97.9 56 18 92/51 (65) 93 09/01/19 09:00 Room Air 09/01/19 08:00 97.7 49 19 121/50 (73) 95 09/01/19 04:00 98.2 72 22 124/54 (77) 95 09/01/19 00:00 96.4 51 20 121/64 (83) 95 08/31/19 21:00 Room Air 08/31/19 20:00 98.1 74 22 125/65 (85) 08/31/19 16:00 97.5 100 20 134/76 (95) 94 Intake and Output 08/31/19 09/01/19 19:00 07:00 Intake Total 600 ml 1055 ml Output Total 300 ml 500 ml Balance 300 ml 555 ml Intake Oral 600 ml IV Total 1055 ml Output Urine Total 300 ml 500 ml # Voids 2 1 Laboratory Tests 09/01/19 07:25: White Blood Count 4.9, Red Blood Count 3.96L, Hemoglobin 12.2L, Hematocrit 34.1L , Mean Corpuscular Volume 86, Mean Corpuscular Hemoglobin 31.0, Mean Corpuscular Hemoglobin Concent 36.0, Red Cell Distribution Width 12.1, Platelet Count 179, Mean Platelet Volume 6.5, Neutrophils (%) (Auto) 76.1H, Lymphocytes ( %) (Auto) 13.1L, Monocytes (%) (Auto) 7.8, Eosinophils (%) (Auto) 2.4, Basophils (%) (Auto) 0.6, Sodium Level 137, Potassium Level 3.9, Chloride Level 106, Carbon Dioxide Level 26, Anion Gap 5, Blood Urea Nitrogen 3L, Creatinine 0.8, Estimat Glomerular Filtration Rate > 60, Glucose Level 188H, Calcium Level 7.9L, Magnesium Level 1.8, Total Bilirubin 0.2, Aspartate Amino Transf (AST/SGOT ) 17, Alanine Aminotransferase (ALT/SGPT) 14, Alkaline Phosphatase 90, Pro-B- Type Natriuretic Peptide 824H, Total Protein 5.2L, Albumin 1.9L, Globulin 3.3, Albumin/Globulin Ratio 0.6L Height (Feet): 5 Height (Inches): 8.00 Weight (Pounds): 149 General Appearance: WD/WN, alert, lethargic EENT: PERRL/EOMI, normal ENT inspection Neck: non-tender, normal alignment, supple Cardiovascular: normal peripheral pulses, normal rate, regular rhythm Respiratory/Chest: chest wall non-tender, lungs clear, normal breath sounds, no respiratory distress Abdomen: normal bowel sounds, non tender, soft, no organomegaly, no mass Edema: no edema noted Arm (L), no edema noted Arm (R), no edema noted Leg (L), no edema noted Leg (R), no edema noted Pedal (L), no edema noted Pedal (R), no edema noted Generalized 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
[2019-09-01 16:00] VITALS: BP 122/70
--- NOTE | 2019-09-01 17:11 | Surgery Progress Note ---
Surgery Progress Note Subjective Additional Comments bean cute events labs noted micro reviewed exam stable Objective Last 24 Hour Vital Signs Date Time Temp Pulse Resp B/P (MAP) Pulse Ox O2 Delivery O2 Flow Rate FiO2 09/01/19 12:00 97.9 56 18 92/51 (65) 93 09/01/19 09:00 Room Air 09/01/19 08:00 97.7 49 19 121/50 (73) 95 09/01/19 04:00 98.2 72 22 124/54 (77) 95 09/01/19 00:00 96.4 51 20 121/64 (83) 95 08/31/19 21:00 Room Air 08/31/19 20:00 98.1 74 22 125/65 (85) I&O Intake and Output 08/31/19 09/01/19 19:00 07:00 Intake Total 600 ml 1055 ml Output Total 300 ml 500 ml Balance 300 ml 555 ml Intake Oral 600 ml IV Total 1055 ml Output Urine Total 300 ml 500 ml # Voids 2 1 Dressing: other Wound: other Drains: other Cardiovascular: RSR Respiratory: decreased breath sounds Abdomen: soft, non-tender, present bowel sounds Extremities: no cyanosis Laboratory Tests Test 09/01/19 07:25 White Blood Count 4.9 K/UL (4.8-10.8) Red Blood Count 3.96 M/UL (4.70-6.10) L Hemoglobin 12.2 G/DL (14.2-18.0) L Hematocrit 34.1 % (42.0-52.0) L Mean Corpuscular Volume 86 FL (80-99) Mean Corpuscular Hemoglobin 31.0 PG (27.0-31.0) Mean Corpuscular Hemoglobin Concent 36.0 G/DL (32.0-36.0) Red Cell Distribution Width 12.1 % (11.6-14.8) Platelet Count 179 K/UL (150-450) Mean Platelet Volume 6.5 FL (6.5-10.1) Neutrophils (%) (Auto) 76.1 % (45.0-75.0) H Lymphocytes (%) (Auto) 13.1 % (20.0-45.0) L Monocytes (%) (Auto) 7.8 % (1.0-10.0) Eosinophils (%) (Auto) 2.4 % (0.0-3.0) Basophils (%) (Auto) 0.6 % (0.0-2.0) Sodium Level 137 MMOL/L (136-145) Potassium Level 3.9 MMOL/L (3.5-5.1) Chloride Level 106 MMOL/L (98-107) Carbon Dioxide Level 26 MMOL/L (21-32) Anion Gap 5 mmol/L (5-15) Blood Urea Nitrogen 3 mg/dL (7-18) L Creatinine 0.8 MG/DL (0.55-1.30) Estimat Glomerular Filtration Rate > 60 mL/min (>60) Glucose Level 188 MG/DL (74-106) H Calcium Level 7.9 MG/DL (8.5-10.1) L Magnesium Level 1.8 MG/DL (1.8-2.4) Total Bilirubin 0.2 MG/DL (0.2-1.0) Aspartate Amino Transf (AST/SGOT) 17 U/L (15-37) Alanine Aminotransferase (ALT/SGPT) 14 U/L (12-78) Alkaline Phosphatase 90 U/L (46-116) Pro-B-Type Natriuretic Peptide 824 pg/mL (0-125) H Total Protein 5.2 G/DL (6.4-8.2) L Albumin 1.9 G/DL (3.4-5.0) L Globulin 3.3 g/dL Albumin/Globulin Ratio 0.6 (1.0-2.7) L Plan Problems: (1) Decubitus skin ulcer Assessment & Plan: Pt presented on admission with multiple Pressure injuries. DTPI Buttocks which encompasses Sacrum, R and L Buttocks with multiple Unstageable wounds within base of Pressure injury. Full thickness wound at sacrococcygeal area.Biofilm at base of wound. Bone is palpable. Inferior,but in close proximity to L buttocks is wound with 100% slough. At upper R sacral area is Unstageable Pressure injury with scattered slough and small necrotic area. Wound at lower R gluteus has 100% slough. Surrounding Base of wound is mixed areas of purple and maroon discoloration. Edges adherent to base of wound. Unstageable Pressure injury medial/lateral R foot. Dry eschar noted . Edges are adherent. No erythema or fluctuance periwound. Stable dry eschar noted to Distal /lateral R foot. No erythema noted periwound. Dark discoloration medial/lateral L foot. Tx.Plan:Cleanse wound Buttocks with Saline. Apply TheraHoney. Apply Moisture Barrier Paste periwound. Cover with Optifoam drsgs. Change Daily and prn. Apply Cavilon Skin Barrier to R and L trochanter. Cover each site with Optifoam drsg. Change every 7 days and prn. Apply Cavilon Skin Barrier to R and L Malleoli,lateral R and L foot, and both heels. Cover each site with Optifoam drsgs. Change every 7 days and prn. Reposition at least every 2hours or as tolerated. Off-load Heels with pillow. APM/ROSE MARY Mattress Overlay. (2) Malnutrition Assessment & Plan: DAILY ESTIMATED NEEDS: Needs based on Wounds, 73.6kg 28-33 kcals/kg 5504-7982 total kcals 1.25-2 g protein/kg 92-147 g total protein 25-30 mL/kg 4303-0950 total fluid mLs NUTRITION DIAGNOSIS: Increased kcal and pro needs r/t weight loss and wound healing as evidenced by 12# wt loss x2 months d/t decreased po intake, 7% wt change, w/ multiple advanced wounds, refer to WC eval. 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 - FOR TF'S WITHOUT ORAL GRAT: rec above TF as able, start Glucerna 1.2 @22ml/hr for 6 hrs, advance as tolerated 10ml/hr q4-6 hrs to goal. - Flush per MD/ HOB over 30 degerees - Monitor tolerance and glycemic control. If Glucerna 1.5 is available (n[place] wide shortage) would rec at a goal of 60ml/hr x24 hrs for 1440ml, 2160 kcal, 119g pro, 1093ml free H2O. ADDITIONAL RECOMMENDATIONS: 1) Monitor for PEG eval, oral grat, po intake Will adjust TF recs w/ continued po intake/ oral grat 2) With oral diet only, add Glucerna TID w/ meals 3) Wound care: SHIVA BID + Vit C 250mg BID + ZnSo4 220 mg qd x10 days Without TF's-> add MVI w. min qd 4) A1C 6.7 (May 2019), consider niss (3) Failure to thrive in adult (4) Encounter for gastrojejunal tube placement Gordo Villalta Sep 01, 2019 17:11
[2019-09-01 20:00] VITALS: BP 118/52
--- NOTE | 2019-09-01 22:57 | General Progress Note ---
Assessment/Plan Status: stable, progressing Assessment/Plan: Assessment - Parkinson's - FTT - Anorexia - malnutrition / low albumin - decubitus ulcers - OBS Recommendations - careful po intake - check swallow evaluation - IVF - wound care - PEG once stable Subjective Allergies: Coded Allergies: No Known Allergies (Unverified , 08/28/19) Subjective above noted NAD COVID test result still not available Objective Last 24 Hour Vital Signs Date Time Temp Pulse Resp B/P (MAP) Pulse Ox O2 Delivery O2 Flow Rate FiO2 09/01/19 21:00 Room Air 09/01/19 20:00 97.2 94 20 118/52 (74) 93 09/01/19 16:00 97.7 74 19 122/70 (87) 92 09/01/19 12:00 97.9 56 18 92/51 (65) 93 09/01/19 09:00 Room Air 09/01/19 08:00 97.7 49 19 121/50 (73) 95 09/01/19 04:00 98.2 72 22 124/54 (77) 95 09/01/19 00:00 96.4 51 20 121/64 (83) 95 Intake and Output 08/31/19 09/01/19 19:00 07:00 Intake Total 600 ml 1055 ml Output Total 300 ml 500 ml Balance 300 ml 555 ml Intake Oral 600 ml IV Total 1055 ml Output Urine Total 300 ml 500 ml # Voids 2 1 Laboratory Tests 09/01/19 07:25: White Blood Count 4.9, Red Blood Count 3.96L, Hemoglobin 12.2L, Hematocrit 34.1L , Mean Corpuscular Volume 86, Mean Corpuscular Hemoglobin 31.0, Mean Corpuscular Hemoglobin Concent 36.0, Red Cell Distribution Width 12.1, Platelet Count 179, Mean Platelet Volume 6.5, Neutrophils (%) (Auto) 76.1H, Lymphocytes ( %) (Auto) 13.1L, Monocytes (%) (Auto) 7.8, Eosinophils (%) (Auto) 2.4, Basophils (%) (Auto) 0.6, Sodium Level 137, Potassium Level 3.9, Chloride Level 106, Carbon Dioxide Level 26, Anion Gap 5, Blood Urea Nitrogen 3L, Creatinine 0.8, Estimat Glomerular Filtration Rate > 60, Glucose Level 188H, Calcium Level 7.9L, Magnesium Level 1.8, Total Bilirubin 0.2, Aspartate Amino Transf (AST/SGOT ) 17, Alanine Aminotransferase (ALT/SGPT) 14, Alkaline Phosphatase 90, Pro-B- Type Natriuretic Peptide 824H, Total Protein 5.2L, Albumin 1.9L, Globulin 3.3, Albumin/Globulin Ratio 0.6L Height (Feet): 5 Height (Inches): 8.00 Weight (Pounds): 149 Objective Debilitated WM NCAT supple CTA RRR Abd soft, NT, ND no edema Kenji Goodman MD Sep 01, 2019 22:57
[2019-09-02 00:24] VITALS: BP 102/49
[2019-09-02 04:00] VITALS: BP 119/61
--- NOTE | 2019-09-02 05:15 | Progress Note ---
DATE: 09/01/2019 CARDIOLOGY PROGRESS NOTE SUBJECTIVE: The patient remains without distress. PHYSICAL EXAMINATION: VITAL SIGNS: Saturating 93% to 95% on room air. Blood pressure 92/51 to 124/54, heart rate 49 to 72, afebrile. Positive blood cultures noted. NECK: Supple. LUNGS: Clear. CARDIAC: Regular. Slow S1 and S2. No murmur. ABDOMEN: Soft. EXTREMITIES: No edema. LABORATORY DATA: White count 4.9, hemoglobin 12.2. Sodium 137, potassium 3.9, bicarb 26, BUN 3, creatinine 0.8. Magnesium 1.8. Pronatriuretic peptide 824. IMPRESSION: 1. Hypertensive heart disease. 2. Acute on chronic diastolic congestive heart failure. 3. Sinus node disease with bradycardia. 4. Possible bacteremia. 5. Failure to thrive. 6. Metabolic and toxic encephalopathy. PLAN: Nutritional support by feeding tube. No indication for pacemaker presently. Atropine at bedside during procedures due to increased vagal tone with G-tube placement. Continue cautious hydration. Adjust IV fluids. Titrate antihypertensive regimen based on clinical parameters. Mahamed Feng M.D. DR: Sathya JOB#: [id number] CC:
[2019-09-02 08:00] VITALS: BP 99/52
[2019-09-02] MEDS: Zinc Sulfate 220mg ORAL SCH (08:35)
[2019-09-02] MEDS: Pantoprazole Inj IVP SCH (08:35)
[2019-09-02] MEDS: Ascorbic Acid 500mg tab ORAL SCH ×2 (08:35→17:20)
[2019-09-02] MEDS: Docusate 100mg cap ORAL SCH (08:35)
[2019-09-02] MEDS: Tamsulosin 0.4mg cap ORAL SCH (08:35)
[2019-09-02] MEDS: Heparin 5000 units/ml inj SUBQ SCH ×2 (08:41→21:14)
--- NOTE | 2019-09-02 09:09 | General Progress Note ---
Assessment/Plan Problem List: (1) UTI (urinary tract infection) ICD Codes: N39.0 - Urinary tract infection, site not specified SNOMED: 28603848 (2) Toxic metabolic encephalopathy ICD Codes: G92 - Toxic encephalopathy SNOMED: 520768072 (3) Failure to thrive in adult ICD Codes: R62.7 - Adult failure to thrive SNOMED: 939669540 (4) Malnutrition ICD Codes: E46 - Unspecified protein-calorie malnutrition SNOMED: 11022383 (5) Decubitus skin ulcer ICD Codes: L89.90 - Pressure ulcer of unspecified site, unspecified stage SNOMED: 894400264 Status: stable, progressing Assessment/Plan: cont current rx iv abx ID appreciated follow up cultures ivf monitor labs speech rx encourage pos GT when stable await covid d/w who agrees if needed Subjective ROS Limited/Unobtainable: Yes Constitutional: Reports: malaise, weakness HEENT: Reports: no symptoms Cardiovascular: Reports: no symptoms Respiratory: Reports: no symptoms Gastrointestinal/Abdominal: Reports: difficulty swallowing, poor appetite, poor fluid intake Genitourinary: Reports: no symptoms Neurologic/Psychiatric: Reports: pre-existing deficit Endocrine: Reports: no symptoms Hematologic/Lymphatic: Reports: no symptoms Allergies: Coded Allergies: No Known Allergies (Unverified , 08/28/19) All Systems: reviewed and negative except above Subjective more alert. on ivf. confused at baseline. no cp/sob. no fever or chills. on abx for uti. +blood cultures reviewed. on abx Objective Last 24 Hour Vital Signs Date Time Temp Pulse Resp B/P (MAP) Pulse Ox O2 Delivery O2 Flow Rate FiO2 09/02/19 08:00 98.9 52 18 99/52 (68) 94 09/02/19 04:00 98.2 77 20 119/61 (80) 93 09/02/19 00:24 99.1 65 22 102/49 (66) 09/01/19 21:00 Room Air 09/01/19 20:00 97.2 94 20 118/52 (74) 93 09/01/19 16:00 97.7 74 19 122/70 (87) 92 09/01/19 12:00 97.9 56 18 92/51 (65) 93 Intake and Output 09/01/19 09/02/19 19:00 07:00 Intake Total 735 ml 1275 ml Output Total 1700 ml Balance -965 ml 1275 ml Intake Oral 660 ml IV Total 75 ml 675 ml Other 600 ml Output Urine Total 1700 ml # Bowel Movements 1 Height (Feet): 5 Height (Inches): 8.00 Weight (Pounds): 188 Objective General Appearance: WD/WN, alert, lethargic EENT: PERRL/EOMI, normal ENT inspection Neck: non-tender, normal alignment, supple Cardiovascular: normal peripheral pulses, normal rate, regular rhythm Respiratory/Chest: chest wall non-tender, lungs clear, normal breath sounds, no respiratory distress Abdomen: normal bowel sounds, non tender, soft, no organomegaly, no mass Edema: no edema noted Arm (L), no edema noted Arm (R), no edema noted Leg (L), no edema noted Leg (R), no edema noted Pedal (L), no edema noted Pedal (R), no edema noted 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
--- NOTE | 2019-09-02 10:49 | Infectious Diseases Prog Note ---
Assessment/Plan Assessment/Plan A: 1. Positive blood culture with S. Capitis, contamination 2. Diabetes. 3. Hypertension. 4. Dementia. 5. Parkinson's disease. 6. 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 Discontinue IV vancomycin. 2. Wound care Subjective ROS Limited/Unobtainable: Yes Allergies: Coded Allergies: No Known Allergies (Unverified , 08/28/19) Objective Vital Signs Last 24 Hour Vital Signs Date Time Temp Pulse Resp B/P (MAP) Pulse Ox O2 Delivery O2 Flow Rate FiO2 09/02/19 10:28 Room Air 09/02/19 09:00 Room Air 09/02/19 08:00 98.9 52 18 99/52 (68) 94 09/02/19 04:00 98.2 77 20 119/61 (80) 93 09/02/19 00:24 99.1 65 22 102/49 (66) 09/01/19 21:00 Room Air 09/01/19 20:00 97.2 94 20 118/52 (74) 93 09/01/19 16:00 97.7 74 19 122/70 (87) 92 09/01/19 12:00 97.9 56 18 92/51 (65) 93 Height (Feet): 5 Height (Inches): 8.00 Weight (Pounds): 188 General Appearance: no acute distress HEENT: mucous membranes moist Respiratory/Chest: no respiratory distress Cardiovascular: normal rate Abdomen: soft, non tender Extremities: no edema Neurologic/Psychiatric: other - sleeping Current Medications Medications (Trade) Dose Ordered Sig/Margarita Route PRN Reason Start Time Stop Time Status Last Admin Dose Admin Ascorbic Acid (Vitamin C) 250 mg TWICE A DAY ORAL 08/31/19 18:00 09/30/19 17:59 09/02/19 08:35 Dextrose/ Electrolytes 1,000 ml @ 50 mls/hr Q20H IV 09/01/19 23:00 10/01/19 22:59 09/01/19 23:27 Docusate Sodium (Colace) 100 mg DAILY ORAL 08/29/19 09:00 09/28/19 08:59 09/02/19 08:35 Gabapentin (Neurontin) 100 mg THREE TIMES A DAY ORAL 08/29/19 09:00 09/28/19 08:59 09/02/19 08:35 Heparin Sodium (Porcine) (Heparin 5000 units/ml) 5,000 units EVERY 12 HOURS SUBQ 08/28/19 21:00 10/12/19 20:59 09/02/19 08:41 Multivitamins (Multivitamins) 1 tab DAILY ORAL 09/01/19 09:00 10/01/19 08:59 09/02/19 08:35 Pantoprazole (Protonix) 40 mg DAILY IVP 08/29/19 09:00 09/28/19 08:59 09/02/19 08:35 Tamsulosin HCl (Flomax) 0.4 mg DAILY ORAL 08/29/19 09:00 09/28/19 08:59 09/02/19 08:35 Vancomycin HCl (Vanco pharmacy to dose) 1 ea DAILY PRN MISC Per rx protocol 09/01/19 11:15 10/01/19 11:14 Vancomycin HCl 1 gm/Dextrose 275 ml @ 183.708 mls/hr Q24H IVPB 09/02/19 12:00 09/07/19 11:59 Zinc Sulfate (Zinc Sulfate) 220 mg DAILY ORAL 09/01/19 09:00 09/11/19 08:59 09/02/19 08:35 Kareem Blevins MD Sep 02, 2019 10:49
[2019-09-02 12:00] VITALS: BP 101/61
[2019-09-02] MEDS ORDERED: Vancomycin 1gm/D5W 275ml IVPB SCH ×2 (12:00)
--- NOTE | 2019-09-02 14:27 | Surgery Progress Note ---
Surgery Progress Note Subjective Additional Comments no acute events comfortable stable labs noted micro reviewed Objective Last 24 Hour Vital Signs Date Time Temp Pulse Resp B/P (MAP) Pulse Ox O2 Delivery O2 Flow Rate FiO2 09/02/19 12:00 98.7 59 17 101/61 (74) 95 09/02/19 10:28 Room Air 09/02/19 09:00 Room Air 09/02/19 08:00 98.9 52 18 99/52 (68) 94 09/02/19 04:00 98.2 77 20 119/61 (80) 93 09/02/19 00:24 99.1 65 22 102/49 (66) 09/01/19 21:00 Room Air 09/01/19 20:00 97.2 94 20 118/52 (74) 93 09/01/19 16:00 97.7 74 19 122/70 (87) 92 I&O Intake and Output 09/01/19 09/02/19 19:00 07:00 Intake Total 735 ml 1275 ml Output Total 1700 ml Balance -965 ml 1275 ml Intake Oral 660 ml IV Total 75 ml 675 ml Other 600 ml Output Urine Total 1700 ml # Bowel Movements 1 Cardiovascular: RSR Respiratory: clear, decreased breath sounds Abdomen: soft, non-tender, present bowel sounds Extremities: no cyanosis Plan Problems: (1) Decubitus skin ulcer Assessment & Plan: Pt presented on admission with multiple Pressure injuries. DTPI Buttocks which encompasses Sacrum, R and L Buttocks with multiple Unstageable wounds within base of Pressure injury. Full thickness wound at sacrococcygeal area.Biofilm at base of wound. Bone is palpable. Inferior,but in close proximity to L buttocks is wound with 100% slough. At upper R sacral area is Unstageable Pressure injury with scattered slough and small necrotic area. Wound at lower R gluteus has 100% slough. Surrounding Base of wound is mixed areas of purple and maroon discoloration. Edges adherent to base of wound. Unstageable Pressure injury medial/lateral R foot. Dry eschar noted . Edges are adherent. No erythema or fluctuance periwound. Stable dry eschar noted to Distal /lateral R foot. No erythema noted periwound. Dark discoloration medial/lateral L foot. Tx.Plan:Cleanse wound Buttocks with Saline. Apply TheraHoney. Apply Moisture Barrier Paste periwound. Cover with Optifoam drsgs. Change Daily and prn. Apply Cavilon Skin Barrier to R and L trochanter. Cover each site with Optifoam drsg. Change every 7 days and prn. Apply Cavilon Skin Barrier to R and L Malleoli,lateral R and L foot, and both heels. Cover each site with Optifoam drsgs. Change every 7 days and prn. Reposition at least every 2hours or as tolerated. Off-load Heels with pillow. APM/ROSE MARY Mattress Overlay. (2) Malnutrition Assessment & Plan: DAILY ESTIMATED NEEDS: Needs based on Wounds, 73.6kg 28-33 kcals/kg 0367-7755 total kcals 1.25-2 g protein/kg 92-147 g total protein 25-30 mL/kg 4402-6867 total fluid mLs NUTRITION DIAGNOSIS: Increased kcal and pro needs r/t weight loss and wound healing as evidenced by 12# wt loss x2 months d/t decreased po intake, 7% wt change, w/ multiple advanced wounds, refer to WC eval. (CURRENT DIET: Cardiac puree, NTL) PO DIET RECOMMENDATIONS---->>>> Liberalized Regular diet for oral grat/ texture per SHUTTLELESS LOOM WEAVER ENTERAL NUTRITION RECOMMENDATIONS IF PART OF POC: For non oral feeds: Glucerna 1.2 @72ml/hr x24 hrs to provide 1728ml, 2074kcal, 104g pro, 1391 ml free H2O - Pt adm w/ eval for PEG placement. - FOR TF'S WITHOUT ORAL GRAT: rec above TF as able, start Glucerna 1.2 @22ml/hr for 6 hrs, advance as tolerated 10ml/hr q4-6 hrs to goal. - Flush per MD/ HOB over 30 degerees - Monitor tolerance and glycemic control. If Glucerna 1.5 is available (nation wide shortage) would rec at a goal of 60ml/hr x24 hrs for 1440ml, 2160 kcal, 119g pro, 1093ml free H2O. ADDITIONAL RECOMMENDATIONS: 1) Monitor for PEG eval, oral grat, po intake Will adjust TF recs w/ continued po intake/ oral grat 2) With oral diet only, add Glucerna TID w/ meals 3) Wound care: SHIVA BID + Vit C 250mg BID + ZnSo4 220 mg qd x10 days Without TF's-> add MVI w. min qd 4) A1C 6.7 (May 2019), consider niss (3) Failure to thrive in adult (4) Encounter for gastrojejunal tube placement Gordo Villalta Sep 02, 2019 14:27
[2019-09-02 16:00] VITALS: BP 109/73
[2019-09-02] MEDS: D5 1/2NS w/KCL 10meq 1,000 ML IV SCH (17:21)
[2019-09-02 20:00] VITALS: BP 116/54
--- NOTE | 2019-09-02 21:48 | General Progress Note ---
Assessment/Plan Status: stable, progressing Assessment/Plan: Assessment - Parkinson's - FTT - Anorexia - malnutrition / low albumin - decubitus ulcers - OBS Recommendations - careful po intake - swallow evaluation noted - IVF - wound care - PEG in am Subjective Allergies: Coded Allergies: No Known Allergies (Unverified , 08/28/19) Subjective above noted NAD COVID (-) per verbal report from reference lab Objective Last 24 Hour Vital Signs Date Time Temp Pulse Resp B/P (MAP) Pulse Ox O2 Delivery O2 Flow Rate FiO2 09/02/19 16:00 98.0 59 18 109/73 (85) 97 09/02/19 12:00 98.7 59 17 101/61 (74) 95 09/02/19 10:28 Room Air 09/02/19 09:00 Room Air 09/02/19 08:00 98.9 52 18 99/52 (68) 94 09/02/19 04:00 98.2 77 20 119/61 (80) 93 09/02/19 00:24 99.1 65 22 102/49 (66) Intake and Output 09/01/19 09/02/19 19:00 07:00 Intake Total 735 ml 1275 ml Output Total 1700 ml Balance -965 ml 1275 ml Intake Oral 660 ml IV Total 75 ml 675 ml Other 600 ml Output Urine Total 1700 ml # Bowel Movements 1 Height (Feet): 5 Height (Inches): 8.00 Weight (Pounds): 188 Objective Debilitated WM NCAT supple CTA RRR Abd soft, NT, ND no edema Kenji Goodman MD Sep 02, 2019 21:47
[2019-09-03] VITALS (10 sets, daily range): BP systolic 103–149; BP diastolic 55–90
--- NOTE | 2019-09-03 | Progress Note ---
DATE: 09/02/2019 CARDIOLOGY PROGRESS NOTE SUBJECTIVE: The patient still has poor oral intake with some degree of dysphagia. PHYSICAL EXAMINATION: VITAL SIGNS: Blood pressure parameters 109/73, heart rate 59, respiratory rate 18. He is afebrile. LUNGS: Clear. CARDIAC: Regular rhythm. Slow rate. Normal S1, S2. ABDOMEN: Soft. EXTREMITIES: No edema. IMPRESSION: Sinus bradycardia in the setting of sinus node disease without hemodynamic compromise. Medication regimen reviewed. No therapy is presently on board with negative chronotropic potential. PLAN: Okay to proceed with PEG with cardiac monitoring and atropine at bedside. No current indication for pacemaker. Mahamed Feng M.D. DR: Sathya JOB#: [id number] CC:
[2019-09-03] MEDS ORDERED: ceFAZolin sod 1 GM in D5W 55 ML IVPB SCH (07:30)
[2019-09-03] MEDS ORDERED: NS 500ML IVPB ONE ×2 (08:45→09:55)
[2019-09-03] MEDS: Ascorbic Acid 500mg tab ORAL SCH ×2 (09:00→18:00)
[2019-09-03] MEDS: Heparin 5000 units/ml inj SUBQ SCH ×2 (09:00→20:40)
[2019-09-03] MEDS: Pantoprazole Inj IVP SCH (09:00)
[2019-09-03] MEDS: Zinc Sulfate 220mg ORAL SCH (09:00)
[2019-09-03] MEDS: Docusate 100mg cap ORAL SCH (09:00)
[2019-09-03] MEDS: Tamsulosin 0.4mg cap ORAL SCH (09:00)
--- NOTE | 2019-09-03 09:05 | Anethesia Preoperative Eval ---
Anesthesia Pre-op PMH/ROS General Date of Evaluation: Sep 03, 2019 Time of Evaluation: 09:01 Anesthesiologist: Khanh ASA Score: ASA 4 Mallampati Score Class I : Soft palate, uvula, fauces, pillars visible Class II: Soft palate, uvula, fauces visible Class III: Soft palate, base of uvula visible Class IV: Only hard plate visible Mallampati Classification: Class III Surgeon: Charlie Diagnosis: Dysphagia Surgical Procedure: EGD PEG Anesthesia History: none Family History: no anesthesia problems Allergies: Coded Allergies: No Known Allergies (Unverified , 08/28/19) Medications: see eMAR Patient NPO?: Yes Past Medical History Cardiovascular: Reports: HTN; Denies: CAD, NC, valve dz, arrhythmia, other Pulmonary: Denies: asthma, COPD, NYA, other Gastrointestinal/Genitourinary: Reports: GERD; Denies: CRI, ESRD, other Neurologic/Psychiatric: Reports: dementia, other - Parkinsons Endocrine: Reports: DM; Denies: hypothyroidism, steroids, other HEENT: Denies: cataract (L), cataract (R), glaucoma, NULATO (L), NULATO (R), other Hematology/Immune: Denies: anemia, DVT, bleeding disorder, other Musculoskeletal/Integumentary: Reports: OA; Denies: RA, DJD, DDD, edema, other PMH Narrative: as above PSxH Narrative: See H&P Anesthesia Pre-op Phys. Exam Physician Exam Last Vital Signs Date Time Temp Pulse Resp B/P (MAP) Pulse Ox O2 Delivery O2 Flow Rate FiO2 09/03/19 04:00 97.2 50 18 114/59 (77) 97 09/02/19 22:42 Room Air Constitutional: NAD Neurologic: other - unable to obtaine Cardiovascular: RRR, no M/R/G Respiratory: CTA Gastrointestinal: S/NT/ND Airway Exam Mallampati Score: Class III MO: limited Neck: stiff ROM: limited Teeth: missing Dentures: no upper, no lower Anesthesia Pre-op A/P Labs see chart Risk Assessment & Plan Assessment: ASA 4 Plan: MAC Status Change Before Surgery: No Pre-Antibiotics Drug: ANcef 1gr Given Within 1 Hr of Incision: Yes Time Given: 10:05 Kunal Cassidy MD Sep 03, 2019 09:05
--- NOTE | 2019-09-03 09:45 | General Progress Note ---
Assessment/Plan Status: stable, progressing Assessment/Plan: Assessment - Parkinson's - FTT - Anorexia - anemia, some decline in H&H with IVF - malnutrition / low albumin - decubitus ulcers - OBS Recommendations - NPO - IVF - wound care - EGD and PEG today Subjective Allergies: Coded Allergies: No Known Allergies (Unverified , 08/28/19) Subjective above noted NPO for EGD cardiology noted Objective Last 24 Hour Vital Signs Date Time Temp Pulse Resp B/P (MAP) Pulse Ox O2 Delivery O2 Flow Rate FiO2 09/03/19 04:00 97.2 50 18 114/59 (77) 97 09/03/19 00:00 97.5 55 18 116/56 (76) 97 09/02/19 22:42 Room Air 09/02/19 20:00 97.6 56 18 116/54 (74) 97 09/02/19 16:00 98.0 59 18 109/73 (85) 97 09/02/19 12:00 98.7 59 17 101/61 (74) 95 09/02/19 10:28 Room Air Intake and Output 09/02/19 09/03/19 19:00 07:00 Intake Total 840 ml Output Total 1200 ml Balance 840 ml -1200 ml Intake Oral 290 ml IV Total 550 ml Output Urine Total 1200 ml # Bowel Movements 1 Height (Feet): 5 Height (Inches): 8.00 Weight (Pounds): 188 Objective Debilitated WM NCAT supple CTA RRR Abd soft, NT, ND no edema Kenji Goodman MD Sep 03, 2019 09:45
--- NOTE | 2019-09-03 09:55 | Pre-Procedure Note/Attestation ---
Pre-Procedure Note/Attestation Complete Prior to Procedure Planned Procedure: not applicable Procedure Narrative: egd peg Indications for Procedure Pre-Operative Diagnosis: dysphagia Attestation I attest that I discussed the nature of the procedure; its benefits; risks and complications; and alternatives (and the risks and benefits of such alternatives ), prior to the procedure, with the patient (or the patient's legal videotape sales representative). I attest that, if there was a reasonable possibility of needing a blood transfusion, the patient (or the patient's legal videotape sales representative) was given the [facility] standardized written summary, pursuant to the Santos Jamila Blood Safety Act ([place] Health and Safety Code # 1645, as amended). I attest that I re-evaluated the patient just prior to the surgery and that there has been no change in the patient's H&P, except as documented below: Kneji Goodman MD Sep 03, 2019 09:55
[2019-09-03] MEDS ORDERED: fentaNYL 100 mcg/2 mL IV ONE (10:00)
--- NOTE | 2019-09-03 10:20 | Immediate Post-Op Evaluation ---
Immediate Post-Op Evalulation Immediate Post-Op Evalulation Procedure: EGD PEG tube placement Date of Evaluation: Sep 03, 2019 Time of Evaluation: 10:19 IV Fluids: 300 Blood Products: none Estimated Blood Loss: min Urinary Output: none Blood Pressure Systolic: 146 Blood Pressure Diastolic: 74 Pulse Rate: 68 Respiratory Rate: 20 O2 Sat by Pulse Oximetry: 98 Temperature (Fahrenheit): 98.0 Pain Score (1-10): 1 Nausea: No Vomiting: No Complications none Patient Status: reacts, patent, none Hydration Status: adequate Kunal Cassidy MD Sep 03, 2019 10:20
--- NOTE | 2019-09-03 10:20 | Endoscopy Procedure Note ---
Endoscopy Procedure Note General Indication for Procedure: dysphagia anemia Procedures Performed: EGD, PEG Operative Findings/Diagnosis: nl egd/ent, PEG placed Specimen: none Pt Tolerated Procedure Well: Yes Estimated Blood Loss: none Anesthesia Anesthesiologist: Khanh Anesthesia: MAC Medications Medication Given: see anesthesia record Inserted Devices Implant(s) used?: No GI Core Measures 50 yrs or older w/o bx or poly: Not Applicable 10yrs. F/U recommended: Not Applicable Kenji Goodman MD Sep 03, 2019 10:20
--- NOTE | 2019-09-03 10:21 | Brief Operative Note ---
Immediate Post Operative Note Operative Note Chief Complaint: dysphagia Anemia Pre-op Diagnosis: dysphagia Procedure: EGD PEG Post-op Diagnosis: PEG Placed Surgeon: christal Anesthesia: MAC Specimen: none Complications: none Condition: stable Fluids: Recorded Estimated Blood Loss: none Drains: none Implant(s) used?: No Kenji Goodman MD Sep 03, 2019 10:21
--- NOTE | 2019-09-03 11:12 | 48 Hour Post Anesthesia Eval ---
Post Anesthesia Evaluation Procedure: EGD PEG tube placement Date of Evaluation: Sep 03, 2019 Time of Evaluation: 11:10 Blood Pressure Systolic: 116 0: 72 Pulse Rate: 66 Respiratory Rate: 16 Temperature (Fahrenheit): 99 O2 Sat by Pulse Oximetry: 99 Airway: patent Nausea: No Vomiting: No Pain Intensity: 1 Hydration Status: adequate Cardiopulmonary Status: stable Mental Status/LOC: patient returned to baseline Follow-up Care/Observations: n/a Post-Anesthesia Complications: none Follow-up care needed: N/A Kunal Cassidy MD Sep 03, 2019 11:12
[2019-09-03] MEDS: D5 1/2NS w/KCL 10meq 1,000 ML IV SCH ×2 (12:18→23:31)
--- NOTE | 2019-09-03 14:11 | Surgery Progress Note ---
Surgery Progress Note Subjective Symptoms: improved, tolerating diet, voiding well, passing flatus Objective Last 24 Hour Vital Signs Date Time Temp Pulse Resp B/P (MAP) Pulse Ox O2 Delivery O2 Flow Rate FiO2 09/03/19 12:00 98.1 92 19 138/86 (103) 93 09/03/19 11:12 66 16 99 09/03/19 10:35 97.8 92 13 141/83 96 Room Air 09/03/19 10:25 89 12 143/88 98 Nasal Cannula 3 09/03/19 10:20 91 15 130/87 99 Nasal Cannula 3 09/03/19 10:20 68 20 98 09/03/19 10:15 98.0 93 15 149/90 99 Nasal Cannula 3 09/03/19 09:00 Room Air 09/03/19 08:00 99.5 51 17 120/60 (80) 93 09/03/19 04:00 97.2 50 18 114/59 (77) 97 09/03/19 00:00 97.5 55 18 116/56 (76) 97 09/02/19 22:42 Room Air 09/02/19 20:00 97.6 56 18 116/54 (74) 97 09/02/19 16:00 98.0 59 18 109/73 (85) 97 I&O Intake and Output 09/02/19 09/03/19 19:00 07:00 Intake Total 840 ml Output Total 1200 ml Balance 840 ml -1200 ml Intake Oral 290 ml IV Total 550 ml Output Urine Total 1200 ml # Bowel Movements 1 Dressing: saturated Wound: clean Cardiovascular: RSR Respiratory: decreased breath sounds Abdomen: soft, present bowel sounds Extremities: no cyanosis Plan Problems: (1) Decubitus skin ulcer Assessment & Plan: Pt presented on admission with multiple Pressure injuries. DTPI Buttocks which encompasses Sacrum, R and L Buttocks with multiple Unstageable wounds within base of Pressure injury. Full thickness wound at sacrococcygeal area.Biofilm at base of wound. Bone is palpable. Inferior,but in close proximity to L buttocks is wound with 100% slough. At upper R sacral area is Unstageable Pressure injury with scattered slough and small necrotic area. Wound at lower R gluteus has 100% slough. Surrounding Base of wound is mixed areas of purple and maroon discoloration. Edges adherent to base of wound. Unstageable Pressure injury medial/lateral R foot. Dry eschar noted . Edges are adherent. No erythema or fluctuance periwound. Stable dry eschar noted to Distal /lateral R foot. No erythema noted periwound. Dark discoloration medial/lateral L foot. Tx.Plan:Cleanse wound Buttocks with Saline. Apply TheraHoney. Apply Moisture Barrier Paste periwound. Cover with Optifoam drsgs. Change Daily and prn. Apply Cavilon Skin Barrier to R and L trochanter. Cover each site with Optifoam drsg. Change every 7 days and prn. Apply Cavilon Skin Barrier to R and L Malleoli,lateral R and L foot, and both heels. Cover each site with Optifoam drsgs. Change every 7 days and prn. Reposition at least every 2hours or as tolerated. Off-load Heels with pillow. APM/ROSE MARY Mattress Overlay. (2) Malnutrition Assessment & Plan: DAILY ESTIMATED NEEDS: Needs based on Wounds, 73.6kg 28-33 kcals/kg 8667-9314 total kcals 1.25-2 g protein/kg 92-147 g total protein 25-30 mL/kg 0235-9504 total fluid mLs NUTRITION DIAGNOSIS: Increased kcal and pro needs r/t weight loss and wound healing as evidenced by 12# wt loss x2 months d/t decreased po intake, 7% wt change, w/ multiple advanced wounds, refer to WC eval. (CURRENT DIET: Cardiac puree, NTL) PO DIET RECOMMENDATIONS---->>>> Liberalized Regular diet for oral grat/ texture per COMMISSIONS COORDINATOR ENTERAL NUTRITION RECOMMENDATIONS IF PART OF POC: For non oral feeds: Glucerna 1.2 @72ml/hr x24 hrs to provide 1728ml, 2074kcal, 104g pro, 1391 ml free H2O - Pt adm w/ eval for PEG placement. - FOR TF'S WITHOUT ORAL GRAT: rec above TF as able, start Glucerna 1.2 @22ml/hr for 6 hrs, advance as tolerated 10ml/hr q4-6 hrs to goal. - Flush per MD/ HOB over 30 degerees - Monitor tolerance and glycemic control. If Glucerna 1.5 is available (nation wide shortage) would rec at a goal of 60ml/hr x24 hrs for 1440ml, 2160 kcal, 119g pro, 1093ml free H2O. ADDITIONAL RECOMMENDATIONS: 1) Monitor for PEG eval, oral grat, po intake Will adjust TF recs w/ continued po intake/ oral grat 2) With oral diet only, add Glucerna TID w/ meals 3) Wound care: SHIVA BID + Vit C 250mg BID + ZnSo4 220 mg qd x10 days Without TF's-> add MVI w. min qd 4) A1C 6.7 (May 2019), consider niss (3) Failure to thrive in adult (4) Encounter for gastrojejunal tube placement Assessment & Plan: Patient is s/p PEG placement, seen at bedside alert and responsive to pain. Patient's oral cavity appears slightly dry and would benefit from oral care BID with suction. Patient continues to benefit from COMMISSIONS COORDINATOR intervention s/p PEG for oral gratification for oral comfort and quality of life versus for adequate PO nutrition/hydration. No PO trials given at this time 2/2 order for NPO after midnight for OR. COMMISSIONS COORDINATOR plans to follow-up with Patient tomorrow for PO trials of puree solids and nectar thick liquids to assure safety on previous diet. PLAN: 1. COMMISSIONS COORDINATOR plans to f/u with Patient tomorrow for PO trials to assure safety on previous diet consistency s/p PEG placement. 2. COMMISSIONS COORDINATOR plans to f/u 3x a week x 1 week for dysphagia tx/management 3. Monitor candidacy for MBSS to evaluate swallow physiology and to r/o silent aspiration while in house. Gordo Villalta Sep 03, 2019 14:11
--- NOTE | 2019-09-03 15:15 | Operative Note - Dictated ---
DATE OF OPERATION: 09/03/2019 GASTROENTEROLOGY PROCEDURE REPORT PROCEDURE: Upper gastrointestinal endoscopy with enteroscopy as well as gastrostomy tube placement. SURGEON: Kenji Goodman MD. ANESTHESIA: Please see the separate anesthesiologist notes by Dr. Cassidy. PRE-ENDOSCOPIC DIAGNOSIS: Anemia and dysphagia. POST-ENDOSCOPIC DIAGNOSES: 1. Normal upper gastrointestinal endoscopy without evidence of ulcerations or masses. 2. Status post gastrostomy tube placement. DESCRIPTION OF PROCEDURE: The procedure, its risks, indications, alternatives, and possible complications including but not limited to bleeding, infection, perforation, , and anesthesia complications were explained to the patient's surrogate decision maker and informed consent was obtained. The patient was then sedated in the supine position and a diagnostic upper endoscope was introduced through oropharynx and advanced to the third portion of duodenum. The endoscope was then gradually withdrawn and mucosa examined carefully. Examination of the upper gastrointestinal mucosa did not reveal any ulcers or masses or other lesions to explain the patient's anemia. Thereafter, location for placement of the gastrostomy tube was identified by palpation and transillumination techniques. The outside skin was sterilely prepared, anesthetized, and incised, and the trocar needle was used to place the gastrostomy tube using the standard pull technique. Position was verified endoscopically. The patient was sent to Recovery in good condition. COMPLICATIONS: None. RECOMMENDATIONS: 1. Observe overnight. 2. Begin tube feedings tomorrow. Kenji Goodman M.D. DR: ALEA JOB#: [id number] CC:
--- NOTE | 2019-09-03 16:11 | General Progress Note ---
Assessment/Plan Problem List: (1) UTI (urinary tract infection) ICD Codes: N39.0 - Urinary tract infection, site not specified SNOMED: 68003693 (2) Toxic metabolic encephalopathy ICD Codes: G92 - Toxic encephalopathy SNOMED: 922321776 (3) Failure to thrive in adult ICD Codes: R62.7 - Adult failure to thrive SNOMED: 200351025 (4) Malnutrition ICD Codes: E46 - Unspecified protein-calorie malnutrition SNOMED: 93559195 (5) Decubitus skin ulcer ICD Codes: L89.90 - Pressure ulcer of unspecified site, unspecified stage SNOMED: 590169024 Status: stable, progressing Assessment/Plan: cont current rx iv abx ID appreciated follow up cultures ivf monitor labs speech rx encourage pos GT placement d/w who agrees if needed Subjective ROS Limited/Unobtainable: Yes Constitutional: Reports: malaise, weakness HEENT: Reports: no symptoms Cardiovascular: Reports: no symptoms Respiratory: Reports: cough Gastrointestinal/Abdominal: Reports: difficulty swallowing, poor appetite, poor fluid intake Genitourinary: Reports: no symptoms Neurologic/Psychiatric: Reports: pre-existing deficit Endocrine: Reports: no symptoms Hematologic/Lymphatic: Reports: anemia Allergies: Coded Allergies: No Known Allergies (Unverified , 08/28/19) All Systems: reviewed and negative except above Subjective more alert. on ivf. confused at baseline. no cp/sob. no fever or chills. on abx for uti. covid - Objective Last 24 Hour Vital Signs Date Time Temp Pulse Resp B/P (MAP) Pulse Ox O2 Delivery O2 Flow Rate FiO2 09/03/19 12:00 98.1 92 19 138/86 (103) 93 09/03/19 11:12 66 16 99 09/03/19 10:35 97.8 92 13 141/83 96 Room Air 09/03/19 10:25 89 12 143/88 98 Nasal Cannula 3 09/03/19 10:20 91 15 130/87 99 Nasal Cannula 3 09/03/19 10:20 68 20 98 09/03/19 10:15 98.0 93 15 149/90 99 Nasal Cannula 3 09/03/19 09:00 Room Air 09/03/19 08:00 99.5 51 17 120/60 (80) 93 09/03/19 04:00 97.2 50 18 114/59 (77) 97 09/03/19 00:00 97.5 55 18 116/56 (76) 97 09/02/19 22:42 Room Air 09/02/19 20:00 97.6 56 18 116/54 (74) 97 Intake and Output 09/02/19 09/03/19 19:00 07:00 Intake Total 840 ml Output Total 1200 ml Balance 840 ml -1200 ml Intake Oral 290 ml IV Total 550 ml Output Urine Total 1200 ml # Bowel Movements 1 Height (Feet): 5 Height (Inches): 8.00 Weight (Pounds): 188 Objective General Appearance: WD/WN, alert, lethargic EENT: PERRL/EOMI, normal ENT inspection Neck: non-tender, normal alignment, supple Cardiovascular: normal peripheral pulses, normal rate, regular rhythm Respiratory/Chest: chest wall non-tender, lungs clear, normal breath sounds, no respiratory distress Abdomen: normal bowel sounds, non tender, soft, no organomegaly, no mass Edema: no edema noted Arm (L), no edema noted Arm (R), no edema noted Leg (L), no edema noted Leg (R), no edema noted Pedal (L), no edema noted Pedal (R), no edema noted Generalized Neurologic: mobile designer II-XII grossly normal, alert, responsive, motor weakness, disoriented Skin: normal pigmentation Lymphatic: normal anterior cervical (L), normal anterior cervical (R) Waldo Dinh MD Sep 03, 2019 16:11
--- NOTE | 2019-09-03 16:52 | Infectious Diseases Prog Note ---
Assessment/Plan Assessment/Plan A: 1. Positive blood culture with S. Capitis, contamination 2. Diabetes. 3. Hypertension. 4. Dementia. 5. Parkinson's disease. 6. 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 Observe off antibiotic. 2. Wound care Subjective ROS Limited/Unobtainable: Yes Constitutional: Denies: fever Allergies: Coded Allergies: No Known Allergies (Unverified , 08/28/19) Objective Vital Signs Last 24 Hour Vital Signs Date Time Temp Pulse Resp B/P (MAP) Pulse Ox O2 Delivery O2 Flow Rate FiO2 09/03/19 12:00 98.1 92 19 138/86 (103) 93 09/03/19 11:12 66 16 99 09/03/19 10:35 97.8 92 13 141/83 96 Room Air 09/03/19 10:25 89 12 143/88 98 Nasal Cannula 3 09/03/19 10:20 91 15 130/87 99 Nasal Cannula 3 09/03/19 10:20 68 20 98 09/03/19 10:15 98.0 93 15 149/90 99 Nasal Cannula 3 09/03/19 09:00 Room Air 09/03/19 08:00 99.5 51 17 120/60 (80) 93 09/03/19 04:00 97.2 50 18 114/59 (77) 97 09/03/19 00:00 97.5 55 18 116/56 (76) 97 09/02/19 22:42 Room Air 09/02/19 20:00 97.6 56 18 116/54 (74) 97 Height (Feet): 5 Height (Inches): 8.00 Weight (Pounds): 188 HEENT: mucous membranes moist Respiratory/Chest: lungs clear Cardiovascular: normal rate Abdomen: soft, non tender Extremities: no edema Neurologic/Psychiatric: aphasia Current Medications Medications (Trade) Dose Ordered Sig/Margarita Route PRN Reason Start Time Stop Time Status Last Admin Dose Admin Ascorbic Acid (Vitamin C) 250 mg TWICE A DAY ORAL 08/31/19 18:00 09/30/19 17:59 09/02/19 17:20 Dextrose/ Electrolytes 1,000 ml @ 75 mls/hr [id number] IV 09/03/19 10:16 10/01/19 10:15 09/03/19 12:18 Docusate Sodium (Colace) 100 mg DAILY ORAL 08/29/19 09:00 09/28/19 08:59 09/02/19 08:35 Gabapentin (Neurontin) 100 mg THREE TIMES A DAY ORAL 08/29/19 09:00 09/28/19 08:59 09/02/19 17:20 Heparin Sodium (Porcine) (Heparin 5000 units/ml) 5,000 units EVERY 12 HOURS SUBQ 08/28/19 21:00 10/12/19 20:59 09/02/19 21:14 Multivitamins (Multivitamins) 1 tab DAILY ORAL 09/01/19 09:00 10/01/19 08:59 09/02/19 08:35 Pantoprazole (Protonix) 40 mg DAILY IVP 08/29/19 09:00 09/28/19 08:59 09/02/19 08:35 Tamsulosin HCl (Flomax) 0.4 mg DAILY ORAL 08/29/19 09:00 09/28/19 08:59 09/02/19 08:35 Zinc Sulfate (Zinc Sulfate) 220 mg DAILY ORAL 09/01/19 09:00 09/11/19 08:59 09/02/19 08:35 Kareem Blevins MD Sep 03, 2019 16:52
[2019-09-04] VITALS: BP 104/46
--- NOTE | 2019-09-04 03:44 | Progress Note ---
DATE: 09/03/2019 CARDIOLOGY PROGRESS NOTE SUBJECTIVE: Alert, but confused. No distress. On antimicrobials. Heart rate has improved. PHYSICAL EXAMINATION: VITAL SIGNS: Blood pressure 138/86, heart rate 92, respirations 19, oxygen saturation on room air 96%. LUNGS: Clear. CARDIAC: Regular. ABDOMEN: Soft. EXTREMITIES: No edema. LABORATORY DATA: White count 4.9, hemoglobin 12.2. Potassium 3.9. Magnesium 1.8. Pro-natriuretic peptide 824 from 09/01/2019. IMPRESSION: 1. Dysphagia. 2. Failure to thrive. 3. Anemia. 4. Dementia. 5. Chronic diastolic congestive heart failure. 6. Hypertensive heart disease. 7. Sinus node disease with bradycardia that is asymptomatic. PLAN: 1. Stable for PEG today. 2. Atropine at bedside as previously discussed. 3. Continue IV fluid hydration. Mahamed Feng M.D. DR: AMAYA JOB#: [id number] CC:
[2019-09-04 04:00] VITALS: BP 105/57
[2019-09-04 07:27] LABS: BASOPHILS % (AUTO) 0.5 % (0.0-2.0); EOSINOPHILS % (AUTO) 2.3 % (0.0-3.0); HEMATOCRIT 38.9 % (42.0-52.0); HEMOGLOBIN 12.8 G/DL (14.2-18.0); LYMPHOCYTES % (AUTO) 16.1 % (20.0-45.0); MEAN CORPUSCULAR VOLUME 94 FL (80-99); MONOCYTES % (AUTO) 6.6 % (1.0-10.0); NEUTROPHILS % (AUTO) 74.5 % (45.0-75.0); PLATELET COUNT 153 K/UL (150-450); RED BLOOD COUNT 4.16 M/UL (4.70-6.10); RED CELL DISTRIBUTION WIDTH 12.3 % (11.6-14.8); WHITE BLOOD COUNT 6.9 K/UL (4.8-10.8)
[2019-09-04 07:41] LABS: ALANINE AMINOTRANSFERASE 12 U/L (12-78); ALBUMIN 1.9 G/DL (3.4-5.0); ALBUMIN/GLOBULIN RATIO 0.5 (1.0-2.7); ALKALINE PHOSPHATASE 79 U/L (46-116); ANION GAP 8 mmol/L (5-15); ASPARTATE AMINO TRANSFERASE 12 U/L (15-37); BILIRUBIN,TOTAL 0.6 MG/DL (0.2-1.0); BLOOD UREA NITROGEN 6 mg/dL (7-18); CALCIUM 8.1 MG/DL (8.5-10.1); CARBON DIOXIDE 27 MMOL/L (21-32); CHLORIDE 105 MMOL/L (98-107); CREATININE 0.8 MG/DL (0.55-1.30); POTASSIUM 4.2 MMOL/L (3.5-5.1); SODIUM 140 MMOL/L (136-145)
[2019-09-04 08:00] VITALS: BP 116/64
[2019-09-04] MEDS: Docusate 100mg cap ORAL SCH (09:00)
[2019-09-04] MEDS: Zinc Sulfate 220mg ORAL SCH (09:56)
[2019-09-04] MEDS: Ascorbic Acid 500mg tab ORAL SCH ×2 (09:56→18:36)
[2019-09-04] MEDS: Heparin 5000 units/ml inj SUBQ SCH ×2 (09:56→20:31)
[2019-09-04] MEDS: Pantoprazole Inj IVP SCH (09:57)
[2019-09-04] MEDS: Tamsulosin 0.4mg cap ORAL SCH (10:05)
--- NOTE | 2019-09-04 11:08 | Infectious Diseases Prog Note ---
Assessment/Plan Assessment/Plan antibiotics : none A 1. + blood cultures with staph capitis likely contaminated 2. diabetes mellitus 3. hypertension 4. Parkinsons disease 5. dementia 6. COVID 19 test x 1 negative P 1. continue off antibiotics Subjective ROS Limited/Unobtainable: Yes Allergies: Coded Allergies: No Known Allergies (Unverified , 08/28/19) Objective Vital Signs Last 24 Hour Vital Signs Date Time Temp Pulse Resp B/P (MAP) Pulse Ox O2 Delivery O2 Flow Rate FiO2 09/04/19 08:00 98.4 53 18 116/64 (81) 94 09/04/19 05:00 Room Air 09/04/19 04:00 97.5 54 20 105/57 (73) 94 09/04/19 00:00 97.5 61 22 104/46 (65) 93 09/03/19 21:00 Room Air 09/03/19 20:00 97.9 66 20 103/55 (71) 93 09/03/19 16:00 98.5 56 19 127/84 (98) 95 09/03/19 12:00 98.1 92 19 138/86 (103) 93 09/03/19 11:12 66 16 99 Height (Feet): 5 Height (Inches): 8.00 Weight (Pounds): 188 Respiratory/Chest: lungs clear Cardiovascular: normal rate, regular rhythm, no gallop/murmur Abdomen: soft, non tender Extremities: no edema Laboratory Tests Test 09/04/19 05:15 White Blood Count 6.9 K/UL (4.8-10.8) Red Blood Count 4.16 M/UL (4.70-6.10) L Hemoglobin 12.8 G/DL (14.2-18.0) L Hematocrit 38.9 % (42.0-52.0) L Mean Corpuscular Volume 94 FL (80-99) Mean Corpuscular Hemoglobin 30.7 PG (27.0-31.0) Mean Corpuscular Hemoglobin Concent 32.8 G/DL (32.0-36.0) Red Cell Distribution Width 12.3 % (11.6-14.8) Platelet Count 153 K/UL (150-450) Mean Platelet Volume 8.4 FL (6.5-10.1) Neutrophils (%) (Auto) 74.5 % (45.0-75.0) Lymphocytes (%) (Auto) 16.1 % (20.0-45.0) L Monocytes (%) (Auto) 6.6 % (1.0-10.0) Eosinophils (%) (Auto) 2.3 % (0.0-3.0) Basophils (%) (Auto) 0.5 % (0.0-2.0) Sodium Level 140 MMOL/L (136-145) Potassium Level 4.2 MMOL/L (3.5-5.1) Chloride Level 105 MMOL/L (98-107) Carbon Dioxide Level 27 MMOL/L (21-32) Anion Gap 8 mmol/L (5-15) Blood Urea Nitrogen 6 mg/dL (7-18) L Creatinine 0.8 MG/DL (0.55-1.30) Estimat Glomerular Filtration Rate > 60 mL/min (>60) Glucose Level 148 MG/DL (74-106) H Calcium Level 8.1 MG/DL (8.5-10.1) L Magnesium Level 1.8 MG/DL (1.8-2.4) Total Bilirubin 0.6 MG/DL (0.2-1.0) Aspartate Amino Transf (AST/SGOT) 12 U/L (15-37) L Alanine Aminotransferase (ALT/SGPT) 12 U/L (12-78) Alkaline Phosphatase 79 U/L (46-116) Pro-B-Type Natriuretic Peptide 849 pg/mL (0-125) H Total Protein 5.4 G/DL (6.4-8.2) L Albumin 1.9 G/DL (3.4-5.0) L Globulin 3.5 g/dL Albumin/Globulin Ratio 0.5 (1.0-2.7) L Current Medications Medications (Trade) Dose Ordered Sig/Margarita Route PRN Reason Start Time Stop Time Status Last Admin Dose Admin Ascorbic Acid (Vitamin C) 250 mg TWICE A DAY ORAL 08/31/19 18:00 09/30/19 17:59 09/04/19 09:56 Dextrose/ Electrolytes 1,000 ml @ 75 mls/hr [id number] IV 09/03/19 10:16 10/01/19 10:15 09/03/19 23:31 Docusate Sodium (Colace) 100 mg DAILY ORAL 08/29/19 09:00 09/28/19 08:59 09/02/19 08:35 Gabapentin (Neurontin) 100 mg THREE TIMES A DAY ORAL 08/29/19 09:00 09/28/19 08:59 09/04/19 09:55 Heparin Sodium (Porcine) (Heparin 5000 units/ml) 5,000 units EVERY 12 HOURS SUBQ 08/28/19 21:00 10/12/19 20:59 09/04/19 09:56 Multivitamins (Multivitamins) 1 tab DAILY ORAL 09/01/19 09:00 10/01/19 08:59 09/04/19 09:56 Pantoprazole (Protonix) 40 mg DAILY IVP 08/29/19 09:00 09/28/19 08:59 09/04/19 09:57 Tamsulosin HCl (Flomax) 0.4 mg DAILY ORAL 08/29/19 09:00 09/28/19 08:59 09/04/19 10:05 Zinc Sulfate (Zinc Sulfate) 220 mg DAILY ORAL 09/01/19 09:00 09/11/19 08:59 09/04/19 09:56 David Caraballo MD Sep 04, 2019 11:08
[2019-09-04 12:00] VITALS: BP_SYST 119; BP_SYST 122; BP_DIAS 62; BP_DIAS 74
[2019-09-04] MEDS: D5 1/2NS w/KCL 10meq 1,000 ML IV SCH (14:10)
--- NOTE | 2019-09-04 14:11 | General Progress Note ---
Assessment/Plan Problem List: (1) UTI (urinary tract infection) ICD Codes: N39.0 - Urinary tract infection, site not specified SNOMED: 52239908 (2) Toxic metabolic encephalopathy ICD Codes: G92 - Toxic encephalopathy SNOMED: 866926552 (3) Failure to thrive in adult ICD Codes: R62.7 - Adult failure to thrive SNOMED: 368498926 (4) Malnutrition ICD Codes: E46 - Unspecified protein-calorie malnutrition SNOMED: 07163646 (5) Decubitus skin ulcer ICD Codes: L89.90 - Pressure ulcer of unspecified site, unspecified stage SNOMED: 574662017 Status: stable, progressing Assessment/Plan: cont current rx ivf gt feeds per GI meds via GT resp care psych rx Subjective ROS Limited/Unobtainable: No Constitutional: Reports: malaise, weakness HEENT: Reports: no symptoms Cardiovascular: Reports: no symptoms Respiratory: Reports: cough Gastrointestinal/Abdominal: Reports: difficulty swallowing, poor appetite, poor fluid intake Genitourinary: Reports: no symptoms Neurologic/Psychiatric: Reports: emotional problems, pre-existing deficit Endocrine: Reports: no symptoms Hematologic/Lymphatic: Reports: anemia Allergies: Coded Allergies: No Known Allergies (Unverified , 08/28/19) All Systems: reviewed and negative except above Subjective s/p uncomplicated gt. alert. tolerating meds via gt. no fever or chills. confused at baseline. no bleeding. Objective Last 24 Hour Vital Signs Date Time Temp Pulse Resp B/P (MAP) Pulse Ox O2 Delivery O2 Flow Rate FiO2 09/04/19 08:00 98.4 53 18 116/64 (81) 94 09/04/19 05:00 Room Air 09/04/19 04:00 97.5 54 20 105/57 (73) 94 09/04/19 00:00 97.5 61 22 104/46 (65) 93 09/03/19 21:00 Room Air 09/03/19 20:00 97.9 66 20 103/55 (71) 93 09/03/19 16:00 98.5 56 19 127/84 (98) 95 Intake and Output 09/03/19 09/04/19 18:59 06:59 Intake Total 750 ml 900 ml Output Total 700 ml 700 ml Balance 50 ml 200 ml IV Total 750 ml 900 ml Output Urine Total 700 ml 700 ml Laboratory Tests 09/04/19 05:15: White Blood Count 6.9, Red Blood Count 4.16L, Hemoglobin 12.8L, Hematocrit 38.9L , Mean Corpuscular Volume 94, Mean Corpuscular Hemoglobin 30.7, Mean Corpuscular Hemoglobin Concent 32.8, Red Cell Distribution Width 12.3, Platelet Count 153, Mean Platelet Volume 8.4, Neutrophils (%) (Auto) 74.5, Lymphocytes (% ) (Auto) 16.1L, Monocytes (%) (Auto) 6.6, Eosinophils (%) (Auto) 2.3, Basophils (%) (Auto) 0.5, Sodium Level 140, Potassium Level 4.2, Chloride Level 105, Carbon Dioxide Level 27, Anion Gap 8, Blood Urea Nitrogen 6L, Creatinine 0.8, Estimat Glomerular Filtration Rate > 60, Glucose Level 148H, Calcium Level 8.1L , Magnesium Level 1.8, Total Bilirubin 0.6, Aspartate Amino Transf (AST/SGOT) 12L, Alanine Aminotransferase (ALT/SGPT) 12, Alkaline Phosphatase 79, Pro-B- Type Natriuretic Peptide 849H, Total Protein 5.4L, Albumin 1.9L, Globulin 3.5, Albumin/Globulin Ratio 0.5L Height (Feet): 5 Height (Inches): 8.00 Weight (Pounds): 188 Objective General Appearance: WD/WN, alert, lethargic EENT: PERRL/EOMI, normal ENT inspection Neck: non-tender, normal alignment, supple Cardiovascular: normal peripheral pulses, normal rate, regular rhythm Respiratory/Chest: chest wall non-tender, lungs clear, normal breath sounds, no respiratory distress Abdomen: normal bowel sounds, non tender, soft, no organomegaly, no mass Edema: no edema noted Arm (L), no edema noted Arm (R), no edema noted Leg (L), no edema noted Leg (R), no edema noted Pedal (L), no edema noted Pedal (R), no edema noted 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
--- NOTE | 2019-09-04 15:49 | Surgery Progress Note ---
Surgery Progress Note Subjective Symptoms: improved Objective Last 24 Hour Vital Signs Date Time Temp Pulse Resp B/P (MAP) Pulse Ox O2 Delivery O2 Flow Rate FiO2 09/04/19 08:00 98.4 53 18 116/64 (81) 94 09/04/19 05:00 Room Air 09/04/19 04:00 97.5 54 20 105/57 (73) 94 09/04/19 00:00 97.5 61 22 104/46 (65) 93 09/03/19 21:00 Room Air 09/03/19 20:00 97.9 66 20 103/55 (71) 93 09/03/19 16:00 98.5 56 19 127/84 (98) 95 I&O Intake and Output 09/03/19 09/04/19 19:00 07:00 Intake Total 825 ml 825 ml Output Total 700 ml 700 ml Balance 125 ml 125 ml IV Total 825 ml 825 ml Output Urine Total 700 ml 700 ml Dressing: other Wound: other Drains: other Cardiovascular: RSR Respiratory: decreased breath sounds Abdomen: soft, non-tender, present bowel sounds Extremities: no cyanosis Laboratory Tests Test 09/04/19 05:15 White Blood Count 6.9 K/UL (4.8-10.8) Red Blood Count 4.16 M/UL (4.70-6.10) L Hemoglobin 12.8 G/DL (14.2-18.0) L Hematocrit 38.9 % (42.0-52.0) L Mean Corpuscular Volume 94 FL (80-99) Mean Corpuscular Hemoglobin 30.7 PG (27.0-31.0) Mean Corpuscular Hemoglobin Concent 32.8 G/DL (32.0-36.0) Red Cell Distribution Width 12.3 % (11.6-14.8) Platelet Count 153 K/UL (150-450) Mean Platelet Volume 8.4 FL (6.5-10.1) Neutrophils (%) (Auto) 74.5 % (45.0-75.0) Lymphocytes (%) (Auto) 16.1 % (20.0-45.0) L Monocytes (%) (Auto) 6.6 % (1.0-10.0) Eosinophils (%) (Auto) 2.3 % (0.0-3.0) Basophils (%) (Auto) 0.5 % (0.0-2.0) Sodium Level 140 MMOL/L (136-145) Potassium Level 4.2 MMOL/L (3.5-5.1) Chloride Level 105 MMOL/L (98-107) Carbon Dioxide Level 27 MMOL/L (21-32) Anion Gap 8 mmol/L (5-15) Blood Urea Nitrogen 6 mg/dL (7-18) L Creatinine 0.8 MG/DL (0.55-1.30) Estimat Glomerular Filtration Rate > 60 mL/min (>60) Glucose Level 148 MG/DL (74-106) H Calcium Level 8.1 MG/DL (8.5-10.1) L Magnesium Level 1.8 MG/DL (1.8-2.4) Total Bilirubin 0.6 MG/DL (0.2-1.0) Aspartate Amino Transf (AST/SGOT) 12 U/L (15-37) L Alanine Aminotransferase (ALT/SGPT) 12 U/L (12-78) Alkaline Phosphatase 79 U/L (46-116) Pro-B-Type Natriuretic Peptide 849 pg/mL (0-125) H Total Protein 5.4 G/DL (6.4-8.2) L Albumin 1.9 G/DL (3.4-5.0) L Globulin 3.5 g/dL Albumin/Globulin Ratio 0.5 (1.0-2.7) L Plan Problems: (1) Decubitus skin ulcer Assessment & Plan: Pt presented on admission with multiple Pressure injuries. DTPI Buttocks which encompasses Sacrum, R and L Buttocks with multiple Unstageable wounds within base of Pressure injury. Full thickness wound at sacrococcygeal area.Biofilm at base of wound. Bone is palpable. Inferior,but in close proximity to L buttocks is wound with 100% slough. At upper R sacral area is Unstageable Pressure injury with scattered slough and small necrotic area. Wound at lower R gluteus has 100% slough. Surrounding Base of wound is mixed areas of purple and maroon discoloration. Edges adherent to base of wound. Unstageable Pressure injury medial/lateral R foot. Dry eschar noted . Edges are adherent. No erythema or fluctuance periwound. Stable dry eschar noted to Distal /lateral R foot. No erythema noted periwound. Dark discoloration medial/lateral L foot. Tx.Plan:Cleanse wound Buttocks with Saline. Apply TheraHoney. Apply Moisture Barrier Paste periwound. Cover with Optifoam drsgs. Change Daily and prn. Apply Cavilon Skin Barrier to R and L trochanter. Cover each site with Optifoam drsg. Change every 7 days and prn. Apply Cavilon Skin Barrier to R and L Malleoli,lateral R and L foot, and both heels. Cover each site with Optifoam drsgs. Change every 7 days and prn. Reposition at least every 2hours or as tolerated. Off-load Heels with pillow. APM/ROSE MARY Mattress Overlay. (2) Malnutrition Assessment & Plan: DAILY ESTIMATED NEEDS: Needs based on Wounds, 73.6kg 28-33 kcals/kg 1813-3570 total kcals 1.25-2 g protein/kg 92-147 g total protein 25-30 mL/kg 2966-5574 total fluid mLs NUTRITION DIAGNOSIS: Increased kcal and pro needs r/t weight loss and wound healing as evidenced by 12# wt loss x2 months d/t decreased po intake, 7% wt change, w/ multiple advanced wounds, refer to WC eval. (CURRENT DIET: Cardiac puree, NTL) PO DIET RECOMMENDATIONS---->>>> Liberalized Regular diet for oral grat/ texture per STUDENT MINISTRY PASTOR ENTERAL NUTRITION RECOMMENDATIONS IF PART OF POC: For non oral feeds: Glucerna 1.2 @72ml/hr x24 hrs to provide 1728ml, 2074kcal, 104g pro, 1391 ml free H2O - Pt adm w/ eval for PEG placement. - FOR TF'S WITHOUT ORAL GRAT: rec above TF as able, start Glucerna 1.2 @22ml/hr for 6 hrs, advance as tolerated 10ml/hr q4-6 hrs to goal. - Flush per MD/ HOB over 30 degerees - Monitor tolerance and glycemic control. If Glucerna 1.5 is available ([place] wide shortage) would rec at a goal of 60ml/hr x24 hrs for 1440ml, 2160 kcal, 119g pro, 1093ml free H2O. ADDITIONAL RECOMMENDATIONS: 1) Monitor for PEG eval, oral grat, po intake Will adjust TF recs w/ continued po intake/ oral grat 2) With oral diet only, add Glucerna TID w/ meals 3) Wound care: SHIVA BID + Vit C 250mg BID + ZnSo4 220 mg qd x10 days Without TF's-> add MVI w. min qd 4) A1C 6.7 (May 2019), consider niss (3) Failure to thrive in adult (4) Encounter for gastrojejunal tube placement Assessment & Plan: Patient is s/p PEG placement, seen at bedside alert and responsive to pain. Patient's oral cavity appears slightly dry and would benefit from oral care BID with suction. Patient continues to benefit from STUDENT MINISTRY PASTOR intervention s/p PEG for oral gratification for oral comfort and quality of life versus for adequate PO nutrition/hydration. No PO trials given at this time 2/2 order for NPO after midnight for OR. STUDENT MINISTRY PASTOR plans to follow-up with Patient tomorrow for PO trials of puree solids and nectar thick liquids to assure safety on previous diet. PLAN: 1. STUDENT MINISTRY PASTOR plans to f/u with Patient tomorrow for PO trials to assure safety on previous diet consistency s/p PEG placement. 2. STUDENT MINISTRY PASTOR plans to f/u 3x a week x 1 week for dysphagia tx/management 3. Monitor candidacy for MBSS to evaluate swallow physiology and to r/o silent aspiration while in house. Gordo Villalta Sep 04, 2019 15:49
[2019-09-04 16:00] VITALS: BP 122/74
[2019-09-04 20:00] VITALS: BP 127/63
--- NOTE | 2019-09-04 20:30 | Progress Note ---
DATE: 09/04/2019 CARDIOLOGY PROGRESS NOTE SUBJECTIVE: The patient is status post G-tube without complications. Vitals are stable. OBJECTIVE: VITAL SIGNS: Heart rate in the 50s, no symptomatic bradycardias. He is afebrile and saturating on room air 93% to 94%. LUNGS: Clear with diminished breath sounds. CARDIAC: Regular. Slow S1 and S2 with no new murmur. ABDOMEN: Soft with G-tube intact. EXTREMITIES: There is no edema. LABORATORY DATA: White count 6.9, hemoglobin 12.8. Potassium 4.2, magnesium 1.8. Pro-natriuretic peptide 894. Albumin 1.9. IMPRESSION: 1. Status post PEG. 2. Hypertensive heart disease. 3. Diastolic congestive heart failure, exacerbated by third spacing and low colloid osmotic pressure. 4. Severe protein-calorie malnutrition. 5. Asymptomatic sinus node disease with bradycardia. PLAN: 1. Nutritional support. 2. Expect mobilization of extravascular fluids as albumin increases. 3. No indication for pacemaker. 4. We will discontinue IV fluids. Mahamed Feng M.D. DR: Serge JOB#: [id number] CC:
--- NOTE | 2019-09-04 22:11 | General Progress Note ---
Assessment/Plan Status: stable, progressing Assessment/Plan: Assessment - Parkinson's - FTT - Anorexia - s/p PEG - anemia, some decline in H&H with IVF - malnutrition / low albumin - decubitus ulcers - OBS Recommendations - IVF - wound care - Begin GT feeds - GT care Subjective Allergies: Coded Allergies: No Known Allergies (Unverified , 08/28/19) Subjective above noted NPO for EGD POD #1 after PEG placement NAD Objective Last 24 Hour Vital Signs Date Time Temp Pulse Resp B/P (MAP) Pulse Ox O2 Delivery O2 Flow Rate FiO2 09/04/19 21:11 Room Air 09/04/19 20:00 99.1 84 21 127/63 (84) 94 09/04/19 16:00 97.7 80 18 122/74 (90) 95 09/04/19 12:00 98.0 56 18 119/62 (81) 97 09/04/19 09:00 Room Air 09/04/19 08:00 98.4 53 18 116/64 (81) 94 09/04/19 05:00 Room Air 09/04/19 04:00 97.5 54 20 105/57 (73) 94 09/04/19 00:00 97.5 61 22 104/46 (65) 93 Intake and Output 09/03/19 09/04/19 19:00 07:00 Intake Total 825 ml 825 ml Output Total 700 ml 700 ml Balance 125 ml 125 ml IV Total 825 ml 825 ml Output Urine Total 700 ml 700 ml Laboratory Tests 09/04/19 05:15: White Blood Count 6.9, Red Blood Count 4.16L, Hemoglobin 12.8L, Hematocrit 38.9L , Mean Corpuscular Volume 94, Mean Corpuscular Hemoglobin 30.7, Mean Corpuscular Hemoglobin Concent 32.8, Red Cell Distribution Width 12.3, Platelet Count 153, Mean Platelet Volume 8.4, Neutrophils (%) (Auto) 74.5, Lymphocytes (% ) (Auto) 16.1L, Monocytes (%) (Auto) 6.6, Eosinophils (%) (Auto) 2.3, Basophils (%) (Auto) 0.5, Sodium Level 140, Potassium Level 4.2, Chloride Level 105, Carbon Dioxide Level 27, Anion Gap 8, Blood Urea Nitrogen 6L, Creatinine 0.8, Estimat Glomerular Filtration Rate > 60, Glucose Level 148H, Calcium Level 8.1L , Magnesium Level 1.8, Total Bilirubin 0.6, Aspartate Amino Transf (AST/SGOT) 12L, Alanine Aminotransferase (ALT/SGPT) 12, Alkaline Phosphatase 79, Pro-B- Type Natriuretic Peptide 849H, Total Protein 5.4L, Albumin 1.9L, Globulin 3.5, Albumin/Globulin Ratio 0.5L Height (Feet): 5 Height (Inches): 8.00 Weight (Pounds): 188 Objective Debilitated WM NCAT supple CTA RRR Abd soft, NT, ND, (+) GT no edema Kenji Goodman MD Sep 04, 2019 22:11
[2019-09-05] VITALS: BP 104/64
[2019-09-05 04:00] VITALS: BP 110/63
[2019-09-05 08:00] VITALS: BP 102/68
[2019-09-05] MEDS: Docusate 100mg cap ORAL SCH (10:06)
[2019-09-05] MEDS: Tamsulosin 0.4mg cap ORAL SCH (10:06)
[2019-09-05] MEDS: Pantoprazole Inj IVP SCH (10:06)
[2019-09-05] MEDS: Zinc Sulfate 220mg ORAL SCH (10:07)
[2019-09-05] MEDS: Ascorbic Acid 500mg tab ORAL SCH ×2 (10:07→19:11)
[2019-09-05] MEDS: Heparin 5000 units/ml inj SUBQ SCH (10:08)
--- NOTE | 2019-09-05 11:31 | General Progress Note ---
Assessment/Plan Status: stable, progressing Assessment/Plan: Assessment/Plan: Assessment - Parkinson's - FTT - Anorexia - s/p PEG - anemia, some decline in H&H with IVF - malnutrition / low albumin - decubitus ulcers - OBS Recommendations - IVF - wound care - GT feeds - GT care Subjective ROS Limited/Unobtainable: No Allergies: Coded Allergies: No Known Allergies (Unverified , 08/28/19) Objective Last 24 Hour Vital Signs Date Time Temp Pulse Resp B/P (MAP) Pulse Ox O2 Delivery O2 Flow Rate FiO2 09/05/19 08:00 96.6 96 22 102/68 (79) 92 09/05/19 04:00 98.1 89 22 110/63 (79) 94 09/05/19 00:00 99.0 81 22 104/64 (77) 98 09/04/19 21:11 Room Air 09/04/19 20:00 99.1 84 21 127/63 (84) 94 09/04/19 16:00 97.7 80 18 122/74 (90) 95 09/04/19 12:00 98.0 56 18 119/62 (81) 97 Intake and Output 09/04/19 09/05/19 19:00 07:00 Intake Total 300 ml 475 ml Output Total 600 ml Balance -300 ml 475 ml Free Water 300 ml 100 ml Tube Feeding 375 ml Output Urine Total 600 ml Height (Feet): 5 Height (Inches): 8.00 Weight (Pounds): 188 General Appearance: no apparent distress EENT: normal ENT inspection Neck: supple Cardiovascular: normal rate Respiratory/Chest: decreased breath sounds Abdomen: normal bowel sounds, non tender, soft Extremities: non-tender Chuck Gaitan MD Sep 05, 2019 11:31
[2019-09-05 12:00] VITALS: BP 122/62
--- NOTE | 2019-09-05 12:01 | General Progress Note ---
Assessment/Plan Problem List: (1) UTI (urinary tract infection) ICD Codes: N39.0 - Urinary tract infection, site not specified SNOMED: 72252535 (2) Toxic metabolic encephalopathy ICD Codes: G92 - Toxic encephalopathy SNOMED: 112576412 (3) Failure to thrive in adult ICD Codes: R62.7 - Adult failure to thrive SNOMED: 059783803 (4) Malnutrition ICD Codes: E46 - Unspecified protein-calorie malnutrition SNOMED: 78209784 (5) Decubitus skin ulcer ICD Codes: L89.90 - Pressure ulcer of unspecified site, unspecified stage SNOMED: 760866641 Status: stable, progressing Assessment/Plan: cont current rx off ivf gt feeds per GI meds via GT resp care psych rx dc planning Subjective ROS Limited/Unobtainable: Yes Constitutional: Reports: malaise, weakness HEENT: Reports: no symptoms Cardiovascular: Reports: no symptoms Respiratory: Reports: no symptoms Gastrointestinal/Abdominal: Reports: difficulty swallowing, poor appetite, poor fluid intake Genitourinary: Reports: no symptoms Neurologic/Psychiatric: Reports: pre-existing deficit Endocrine: Reports: no symptoms Hematologic/Lymphatic: Reports: anemia Allergies: Coded Allergies: No Known Allergies (Unverified , 08/28/19) All Systems: reviewed and negative except above Subjective s/p uncomplicated gt. alert. tolerating meds via gt. no fever or chills. confused at baseline. no bleeding. Objective Last 24 Hour Vital Signs Date Time Temp Pulse Resp B/P (MAP) Pulse Ox O2 Delivery O2 Flow Rate FiO2 09/05/19 08:00 96.6 96 22 102/68 (79) 92 09/05/19 04:00 98.1 89 22 110/63 (79) 94 09/05/19 00:00 99.0 81 22 104/64 (77) 98 09/04/19 21:11 Room Air 09/04/19 20:00 99.1 84 21 127/63 (84) 94 09/04/19 16:00 97.7 80 18 122/74 (90) 95 Intake and Output 09/04/19 09/05/19 19:00 07:00 Intake Total 300 ml 475 ml Output Total 600 ml Balance -300 ml 475 ml Free Water 300 ml 100 ml Tube Feeding 375 ml Output Urine Total 600 ml Height (Feet): 5 Height (Inches): 8.00 Weight (Pounds): 188 Objective General Appearance: WD/WN, alert, lethargic EENT: PERRL/EOMI, normal ENT inspection Neck: non-tender, normal alignment, supple Cardiovascular: normal peripheral pulses, normal rate, regular rhythm Respiratory/Chest: chest wall non-tender, lungs clear, normal breath sounds, no respiratory distress Abdomen: normal bowel sounds, non tender, soft, no organomegaly, no mass Edema: no edema noted Arm (L), no edema noted Arm (R), no edema noted Leg (L), no edema noted Leg (R), no edema noted Pedal (L), no edema noted Pedal (R), no edema noted 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
--- NOTE | 2019-09-05 13:05 | Surgery Progress Note ---
Surgery Progress Note Subjective Symptoms: improved, tolerating diet, voiding well, passing flatus Objective Last 24 Hour Vital Signs Date Time Temp Pulse Resp B/P (MAP) Pulse Ox O2 Delivery O2 Flow Rate FiO2 09/05/19 08:00 96.6 96 22 102/68 (79) 92 09/05/19 04:00 98.1 89 22 110/63 (79) 94 09/05/19 00:00 99.0 81 22 104/64 (77) 98 09/04/19 21:11 Room Air 09/04/19 20:00 99.1 84 21 127/63 (84) 94 09/04/19 16:00 97.7 80 18 122/74 (90) 95 I&O Intake and Output 09/04/19 09/05/19 19:00 07:00 Intake Total 300 ml 475 ml Output Total 600 ml Balance -300 ml 475 ml Free Water 300 ml 100 ml Tube Feeding 375 ml Output Urine Total 600 ml Dressing: saturated Cardiovascular: RSR Respiratory: clear, decreased breath sounds Abdomen: soft, non-tender, present bowel sounds Extremities: no cyanosis Plan Problems: (1) Decubitus skin ulcer Assessment & Plan: Pt presented on admission with multiple Pressure injuries. DTPI Buttocks which encompasses Sacrum, R and L Buttocks with multiple Unstageable wounds within base of Pressure injury. Full thickness wound at sacrococcygeal area.Biofilm at base of wound. Bone is palpable. Inferior,but in close proximity to L buttocks is wound with 100% slough. At upper R sacral area is Unstageable Pressure injury with scattered slough and small necrotic area. Wound at lower R gluteus has 100% slough. Surrounding Base of wound is mixed areas of purple and maroon discoloration. Edges adherent to base of wound. Unstageable Pressure injury medial/lateral R foot. Dry eschar noted . Edges are adherent. No erythema or fluctuance periwound. Stable dry eschar noted to Distal /lateral R foot. No erythema noted periwound. Dark discoloration medial/lateral L foot. Tx.Plan:Cleanse wound Buttocks with Saline. Apply TheraHoney. Apply Moisture Barrier Paste periwound. Cover with Optifoam drsgs. Change Daily and prn. Apply Cavilon Skin Barrier to R and L trochanter. Cover each site with Optifoam drsg. Change every 7 days and prn. Apply Cavilon Skin Barrier to R and L Malleoli,lateral R and L foot, and both heels. Cover each site with Optifoam drsgs. Change every 7 days and prn. Reposition at least every 2hours or as tolerated. Off-load Heels with pillow. APM/ROSE MARY Mattress Overlay. (2) Malnutrition Assessment & Plan: DAILY ESTIMATED NEEDS: Needs based on Wounds, 73.6kg 28-33 kcals/kg 4776-2848 total kcals 1.25-2 g protein/kg 92-147 g total protein 25-30 mL/kg 0787-6658 total fluid mLs NUTRITION DIAGNOSIS: Increased kcal and pro needs r/t weight loss and wound healing as evidenced by 12# wt loss x2 months d/t decreased po intake, 7% wt change, w/ multiple advanced wounds, refer to WC eval. (CURRENT DIET: Cardiac puree, NTL) PO DIET RECOMMENDATIONS---->>>> Liberalized Regular diet for oral grat/ texture per INDUSTRIAL [employer]S TEACHER ENTERAL NUTRITION RECOMMENDATIONS IF PART OF POC: For non oral feeds: Glucerna 1.2 @72ml/hr x24 hrs to provide 1728ml, 2074kcal, 104g pro, 1391 ml free H2O - Pt adm w/ eval for PEG placement. - FOR TF'S WITHOUT ORAL GRAT: rec above TF as able, start Glucerna 1.2 @22ml/hr for 6 hrs, advance as tolerated 10ml/hr q4-6 hrs to goal. - Flush per MD/ HOB over 30 degerees - Monitor tolerance and glycemic control. If Glucerna 1.5 is available (n[place] wide shortage) would rec at a goal of 60ml/hr x24 hrs for 1440ml, 2160 kcal, 119g pro, 1093ml free H2O. ADDITIONAL RECOMMENDATIONS: 1) Monitor for PEG eval, oral grat, po intake Will adjust TF recs w/ continued po intake/ oral grat 2) With oral diet only, add Glucerna TID w/ meals 3) Wound care: SHIVA BID + Vit C 250mg BID + ZnSo4 220 mg qd x10 days Without TF's-> add MVI w. min qd 4) A1C 6.7 (May 2019), consider niss (3) Failure to thrive in adult (4) Encounter for gastrojejunal tube placement Assessment & Plan: Patient is s/p PEG placement, seen at bedside alert and responsive to pain. Patient's oral cavity appears slightly dry and would benefit from oral care BID with suction. Patient continues to benefit from IND[employer]S [employer] intervention s/p PEG for oral gratification for oral comfort and quality of life versus for adequate PO nutrition/hydration. No PO trials given at this time 2/2 order for NPO after midnight for OR. INDUSTRIAL [employer]S TEACHER plans to follow-up with Patient tomorrow for PO trials of puree solids and nectar thick liquids to assure safety on previous diet. PLAN: 1. INDUSTRIAL [employer]S TEACHER plans to f/u with Patient tomorrow for PO trials to assure safety on previous diet consistency s/p PEG placement. 2. INDUSTRIAL [employer]S TEACHER plans to f/u 3x a week x 1 week for dysphagia tx/management 3. Monitor candidacy for MBSS to evaluate swallow physiology and to r/o silent aspiration while in house. Gordo Villalta Sep 05, 2019 13:05
[2019-09-05 16:00] VITALS: BP 105/62
--- NOTE | 2019-09-05 21:00 | Progress Note ---
DATE: 09/05/2019 CARDIOLOGY PROGRESS NOTE SUBJECTIVE: The patient is tolerating tube feedings. No apparent distress. OBJECTIVE: VITAL SIGNS: Blood pressure 110/63, pulse 89, respiratory rate 22, afebrile. LUNGS: Clear. CARDIAC: Regular. Normal S1, S2. No murmur. ABDOMEN: Soft. G-tube intact. EXTREMITIES: No edema. IMPRESSION: 1. Hypertensive heart disease. 2. Chronic diastolic congestive heart failure. 3. 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 4. Severe protein-calorie malnutrition. 5. Dysphagia, status post G-tube. 6. Hypertension, controlled. PLAN: 1. [facility] 2. No additional diuresis planned. 3. Expect fluid mobilization with improved protein nutrition continues by G-tube. 4. Discharge medication regimen reviewed. 5. Charge nurse informed to send current medication list with the patient, MAR and I will personally inform senior care of medications to continue. Mahamed Feng M.D. : Serge JOB#: [id number] CC:
--- NOTE | 2019-09-07 16:07 | Discharge Summary ---
Discharge Summary Discharge Summary _ DATE OF ADMISSION: 08/28/2019 DATE OF DISCHARGE: 09/05/2019 DISCHARGED BY: Dr. Dinh REASON FOR ADMISSION: 79 years old male with past medical history of Parkinson disease, hypertension, diabetes mellitus, dementia, was transferred from the longterm facility due to failure to thrive and poor oral intake. Patient with a DNR/DNI status. Despite changes in his diet and appetite stimulant, his oral intake was diminished significantly. Patient was losing weight. Patient's was elected to proceed with a G-tube placement if deemed necessarily. Patient was admitted for further management. CONSULTANTS: rubber boots and shoes repairer Dr. Feng ID specialist Dr. Caraballo GI specialist [facility]. [facility] Dr. Villalta [facility] COURSE: Patient admitted to medical surgical floor and started on the IV fluids. GI specialist consulted. Cardiology clearance was obtained prior to planned procedure. Echocardiogram was a limited study due to very poor acoustic windows and patient strong resistance. It demonstrated normal left ventricular chamber size and systolic function to the extent visualized. Left ventricular ejection fraction estimated to be grossly normal. Safety Net Maker deemed patient to be at normal risk for G-tube placement. DVT prophylaxis provided. Patient was on IV hydration and empiric antibiotic. Antihypertensive regimen titrated. Blood sugar was managed with sliding scale of insulin. Blood culture revealed Staph capitis. Urine culture revealed no evidence of growth. Patient was swabbed for COVID- 19 on 08/29 , which was negative. Per ID specialist blood culture with Staph capitis were likely contaminated. Patient was kept off antibiotics. Bedside swallow evaluation revealed high risk for aspiration. Speech therapist recommended careful one-to-one feeding with strict aspiration precaution with moist pure and nectar thick liquids. Patient was placed on appetite stimulants , and calorie count was implemented. Patient oral intake remained very poor. Hemoglobin and hematocrit were closely monitored with goal to keep hemoglobin above 7 ; hemoglobin and hematocrit remained at baseline, and prior to discharge hemoglobin 12.8 ,hematocrit 38.9. Patient undergone upper endoscopy with enteroscopy and G-tube placement on . Upper endoscopy revealed was normal without evidence of ulceration or mass. Gastrostomy tube was successfully placed. Patient the next day started on tube feeding with tube feeding formula , goal rate and protein supplement provided as per registered dietitian recommendation. Strict aspiration precaution maintained. Patient was able to tolerate tube feeding. Patient presented on admission with multiply pressure injury. Wound care provided as per surgeon recommendation. Continue wound care at the facility. Supportive care provided. SNF medication continued. Patient clinically stabilized and was ready for discharge back to longterm facility for continuation of care FINAL DIAGNOSES: Failure to thrive Anemia Dysphagia Status post upper endoscopy with G-tube placement Protein calorie malnutrition Decubitus skin ulcer, POA Hypertensive heart disease Type 2 diabetes mellitus Prostatic hypertrophy Parkinson disease Dementia Suspected COVID-19 infection- ruled out DISCHARGE MEDICATIONS: See Medication Reconciliation list. DISCHARGE INSTRUCTIONS: Patient was discharged to the longterm facility. Follow up with medical doctor at the facility. I have been assigned to dictate discharge summary for this account. I was not involved in the patient's management. Gina Love NP Sep 07, 2019 16:07
== END 2019-09-05 20:10 | DRG 391 ==
LOC: EDBD 13:10 → EMR 14:50 → 4E 14:55 → EDBEDREQ 18:34
PROC: 0DH63UZ Insertion of Feeding Device into Stomach, Percutaneous Approach (ICD-10-PCS; principal; 2019-09-03 09:58)
DX: R13.10 Dysphagia, unspecified (principal); G92 Toxic encephalopathy; E43 Unspecified severe protein-calorie malnutrition; N39.0 Urinary tract infection, site not specified; I50.32 Chronic diastolic (congestive) heart failure; E87.0 Hyperosmolality and hypernatremia; R62.7 Adult failure to thrive; D64.9 Anemia, unspecified; L89.45 Pressure ulcer of contiguous site of back, buttock and hip, unstageable; L89.890 Pressure ulcer of other site, unstageable; G20 Parkinson's disease; F02.80 Dementia in other diseases classified elsewhere, unspecified severity, without behavioral disturbance, psychotic disturbance, mood disturbance, and anxiety; Z66 Do not resuscitate; E11.9 Type 2 diabetes mellitus without complications; I11.9 Hypertensive heart disease without heart failure; E11.40 Type 2 diabetes mellitus with diabetic neuropathy, unspecified; Z79.4 Long term (current) use of insulin; E11.22 Type 2 diabetes mellitus with diabetic chronic kidney disease; N18.9 Chronic kidney disease, unspecified; I11.0 Hypertensive heart disease with heart failure; R00.1 Bradycardia, unspecified; F09 Unspecified mental disorder due to known physiological condition; E86.0 Dehydration
CPT/HCPCS: 36415; 70450; 71045; 80053; 81003; 82550; 82553; 83605; 83690; 83735; 83880; 84443; 84484; 85007; 85025; 85610; 85651; 85730; 86140; 87040; 87081; 87086; 87181; 92610; 93005; 93306; 94003; 94150; 96360; 99285; J7030